=== PATIENT | female | born 1950 | race Caucasian/White ===

== ENCOUNTER 2018-01-11 22:10 | Inpatient (IN) | payer MEDICARE ==
[~2018-01-11] VITALS: Ht 165.1 cm; Wt 96.0 kg
[~2018-01-11 22:10] MED LIST: ALBU90OI INH; ALBU90OI6 INH; AMOCLA875 PO; ASPI325 PO; ASPI81CH PO; ASPI81EC PO; ATEN25 PO; ATOR10 PO; BACL10 PO; BUDE6HFA; Baclofen10 MG PO; CEPACOL SORE T1 EACH MM; CEPH500 PO; CHOL10002 PO; CLON.5; CLON.5 PO; CLON1 PO; CLOP75 PO; Combigan Eye Dro5 ML OP; DIAZ5 PO; FISH1000 PO; GABA100 PO; GLIM2 PO; GLIM4 PO; GUAI600T33 PO; Glimepiride4 MG PO; HYDACE5 PO; IBUP200 PO; IPRAIS NEB; LATANOPROST2.5 ML OP; LEVFLO500 PO; LISI5 PO; METF500 PO; METF500C PO; Neurontin 100100 MG PO; Norco 5-325 Ta1 EACH PO; ONDA4ODT MM; OXYACE5T PO; PRED1SU BOTHEYES; PRED20 PO; PROM25 PO; Roxicodone5 MG PO; SERT100; SERT100 PO; SITA100T2 PO; TIMO.5OPSO LEFTEYE; TORSE20 PO; VITAMIN D-3 PO; Ventolin Soln3 ML INH
[2018-01-11 23:06] LABS: BASOPHILS ABSOLUTE AUTO 0.05 K/mm3 (0.00-0.23); BASOPHILS PERCENT AUTO 0 % (0-2); EOSINOPHILS ABSOLUTE AUTO 0.01 K/mm3 (0.00-0.68); EOSINOPHILS PERCENT AUTO 0 % (0-6); Hematocrit 39.4 % (33.0-51.0); Hemoglobin 13.1 g/dL (11.5-16.0); IMMATURE GRAN ABSOLUTE AUTO 0.11 K/mm3 (0.00-0.10); IMMATURE GRAN PERCENT AUTO 1 % (0-1); LYMPHOCYTES ABSOLUTE AUTO 1.69 K/mm3 (0.84-5.20); LYMPHOCYTES PERCENT AUTO 8 % (21-46); MONOCYTES ABSOLUTE AUTO 1.34 K/mm3 (0.16-1.47); MONOCYTES PERCENT AUTO 6 % (4-13); Mean Corpuscular HGB 28.4 pg (26.0-34.0); Mean Corpuscular HGB Conc 33.2 g/dL (31.5-36.5); Mean Corpuscular Volume 86 fL (80-100); NEUTROPHILS ABSOLUTE AUTO 18.66 K/mm3 (1.96-9.15); NEUTROPHILS PERCENT AUTO 86 % (41-73); RDW Standard Deviation 43.3 fL (35.1-46.3); Red Blood Cell Count 4.61 M/mm3 (3.80-5.20); White Blood Cell Count 21.86 K/mm3 (4.00-11.30)
[2018-01-11 23:10] LABS: Platelet Count 182 K/mm3 (150-400)
[2018-01-11 23:26] LABS: Alanine Aminotransfer (ALT/SGP 15 U/L (12-78); Albumin, Blood 3.7 g/dL (3.4-5.0); Albumin/Globulin Ratio 0.9 (0.8-1.8); Alk Phos 75 U/L (50-136); Anion Gap 11 mmol/L (6-16); Aspartate Aminotrans (AST/SGOT 10 U/L (12-37); Bilirubin, Total 0.7 mg/dL (0.1-1.0); Blood Urea Nitrogen 15 mg/dL (8-24); Bun/Creatinine Ratio 14.9 (12.0-20.0); CO2, Blood 24 mmol/L (21-32); Calcium, Blood 8.1 mg/dL (8.5-10.1); Chloride, Blood 102 mmol/L (98-108); Creatinine, Blood 1.01 mg/dL (0.40-1.00); Globulin, Blood 4.3 g/dL (2.2-4.0); Glomerular Filtration Rate 58 (60-); Glucose, Blood 265 mg/dL (70-99); Potassium, Blood 3.7 mmol/L (3.5-5.5); Sodium, Blood 137 mmol/L (136-145); Troponin I <0.015 ng/mL (0.000-0.040)
[2018-01-11 23:52] LABS: Bicarbonate Venous 25.9 mmol/L (24.0-30.0); PO2 Venous 117 mmHg (38-42); pH Blood Venous 7.41 (7.34-7.37)
[2018-01-12 00:05] LABS: International Normalized Ratio 1.23; Prothrombin Time Results 12.5 Sec (9.7-11.5)
[2018-01-12 03:11] LABS: Hemoglobin 11.7 g/dL (11.5-16.0); Mean Corpuscular HGB 28.3 pg (26.0-34.0); Mean Corpuscular HGB Conc 32.5 g/dL (31.5-36.5); Mean Corpuscular Volume 87 fL (80-100); Mean Platelet Volume 11.1 fL (9.1-12.4); Platelet Count 149 K/mm3 (150-400); RDW Coefficient Variation 14.1 % (11.7-14.2); RDW Standard Deviation 45.1 fL (35.1-46.3); Red Blood Cell Count 4.13 M/mm3 (3.80-5.20)
[2018-01-12 03:29] LABS: Albumin, Blood 3.3 g/dL (3.4-5.0); Albumin/Globulin Ratio 0.8 (0.8-1.8); Bilirubin, Total 0.5 mg/dL (0.1-1.0); Bun/Creatinine Ratio 15.4 (12.0-20.0); Calcium, Blood 7.5 mg/dL (8.5-10.1); Creatinine, Blood 1.3 mg/dL (0.40-1.00); Globulin, Blood 4.2 g/dL (2.2-4.0); Total Protein, Blood 7.5 g/dL (6.4-8.2)
[2018-01-12] MEDS ORDERED: METF500C PO (10:13)
[2018-01-12] MEDS ORDERED: METO50ER PO (10:13)
[2018-01-12] MEDS ORDERED: SERT100 PO (16:33)
[2018-01-12] MEDS ORDERED: CLON1 PO (16:34)
[2018-01-13 03:47] LABS: BASOPHILS ABSOLUTE AUTO 0.02 K/mm3 (0.00-0.23); BASOPHILS PERCENT AUTO 0 % (0-2); EOSINOPHILS PERCENT AUTO 0 % (0-6); Hematocrit 34.8 % (33.0-51.0); Hemoglobin 11.2 g/dL (11.5-16.0); IMMATURE GRAN ABSOLUTE AUTO 0.31 K/mm3 (0.00-0.10); IMMATURE GRAN PERCENT AUTO 2 % (0-1); LYMPHOCYTES ABSOLUTE AUTO 0.93 K/mm3 (0.84-5.20); LYMPHOCYTES PERCENT AUTO 5 % (21-46); MONOCYTES ABSOLUTE AUTO 0.57 K/mm3 (0.16-1.47); MONOCYTES PERCENT AUTO 3 % (4-13); Mean Corpuscular HGB 28.4 pg (26.0-34.0); Mean Corpuscular HGB Conc 32.2 g/dL (31.5-36.5); Mean Corpuscular Volume 88 fL (80-100); Mean Platelet Volume 11.1 fL (9.1-12.4); NEUTROPHILS ABSOLUTE AUTO 16.89 K/mm3 (1.96-9.15); NEUTROPHILS PERCENT AUTO 90 % (41-73); Platelet Count 148 K/mm3 (150-400); RDW Standard Deviation 45.9 fL (35.1-46.3); Red Blood Cell Count 3.95 M/mm3 (3.80-5.20); White Blood Cell Count 18.72 K/mm3 (4.00-11.30)
[2018-01-13 04:09] LABS: Bun/Creatinine Ratio 29.4 (12.0-20.0); Calcium, Blood 7.7 mg/dL (8.5-10.1); Creatinine, Blood 1.43 mg/dL (0.40-1.00); Potassium, Blood 3.7 mmol/L (3.5-5.5)
[2018-01-13 08:05] LABS: Bicarbonate Venous 22.1 mmol/L (24.0-30.0); PCO2 Venous 56.2 mmHg (38-42); PO2 Venous 55.2 mmHg (38-42); pH Blood Venous 7.26 (7.34-7.37)
[2018-01-13 16:48] LABS: PCO2 Arterial 50 mmHg (35-45); PO2 Arterial 68.8 mmHg (80-100)
[2018-01-14 04:24] LABS: BASOPHILS ABSOLUTE AUTO 0.01 K/mm3 (0.00-0.23); BASOPHILS PERCENT AUTO 0 % (0-2); EOSINOPHILS PERCENT AUTO 0 % (0-6); Hematocrit 33.8 % (33.0-51.0); Hemoglobin 10.5 g/dL (11.5-16.0); IMMATURE GRAN ABSOLUTE AUTO 0.21 K/mm3 (0.00-0.10); IMMATURE GRAN PERCENT AUTO 2 % (0-1); LYMPHOCYTES ABSOLUTE AUTO 0.75 K/mm3 (0.84-5.20); LYMPHOCYTES PERCENT AUTO 6 % (21-46); MONOCYTES ABSOLUTE AUTO 0.39 K/mm3 (0.16-1.47); MONOCYTES PERCENT AUTO 3 % (4-13); Mean Corpuscular HGB 27.3 pg (26.0-34.0); Mean Corpuscular HGB Conc 31.1 g/dL (31.5-36.5); Mean Corpuscular Volume 88 fL (80-100); Mean Platelet Volume 11.9 fL (9.1-12.4); NEUTROPHILS ABSOLUTE AUTO 11.25 K/mm3 (1.96-9.15); NEUTROPHILS PERCENT AUTO 89 % (41-73); Platelet Count 161 K/mm3 (150-400); RDW Coefficient Variation 14.1 % (11.7-14.2); RDW Standard Deviation 45.1 fL (35.1-46.3); Red Blood Cell Count 3.85 M/mm3 (3.80-5.20); White Blood Cell Count 12.61 K/mm3 (4.00-11.30)
[2018-01-14 04:50] LABS: Albumin, Blood 2.7 g/dL (3.4-5.0); Anion Gap 8 mmol/L (6-16); Blood Urea Nitrogen 57 mg/dL (8-24); Bun/Creatinine Ratio 47.1 (12.0-20.0); CO2, Blood 27 mmol/L (21-32); Chloride, Blood 104 mmol/L (98-108); Creatinine, Blood 1.21 mg/dL (0.40-1.00); Glomerular Filtration Rate 47 (60-); Glucose, Blood 283 mg/dL (70-99); Phosphorus, Blood 3.3 mg/dL (2.5-4.9); Potassium, Blood 3.8 mmol/L (3.5-5.5); Sodium, Blood 139 mmol/L (136-145)
[2018-01-14 09:03] LABS: PCO2 Arterial 48.5 mmHg (35-45); PO2 Arterial 63.3 mmHg (80-100)
[2018-01-15 03:50] LABS: BASOPHILS ABSOLUTE AUTO 0.01 K/mm3 (0.00-0.23); BASOPHILS PERCENT AUTO 0 % (0-2); EOSINOPHILS PERCENT AUTO 0 % (0-6); Hematocrit 34.8 % (33.0-51.0); Hemoglobin 11.1 g/dL (11.5-16.0); IMMATURE GRAN ABSOLUTE AUTO 0.23 K/mm3 (0.00-0.10); IMMATURE GRAN PERCENT AUTO 2 % (0-1); LYMPHOCYTES ABSOLUTE AUTO 0.96 K/mm3 (0.84-5.20); LYMPHOCYTES PERCENT AUTO 9 % (21-46); MONOCYTES ABSOLUTE AUTO 0.36 K/mm3 (0.16-1.47); MONOCYTES PERCENT AUTO 4 % (4-13); Mean Corpuscular HGB 28.2 pg (26.0-34.0); Mean Corpuscular HGB Conc 31.9 g/dL (31.5-36.5); Mean Corpuscular Volume 88 fL (80-100); Mean Platelet Volume 11.3 fL (9.1-12.4); NEUTROPHILS ABSOLUTE AUTO 8.86 K/mm3 (1.96-9.15); NEUTROPHILS PERCENT AUTO 85 % (41-73); Platelet Count 175 K/mm3 (150-400); RDW Coefficient Variation 13.9 % (11.7-14.2); RDW Standard Deviation 45.1 fL (35.1-46.3); Red Blood Cell Count 3.94 M/mm3 (3.80-5.20); White Blood Cell Count 10.42 K/mm3 (4.00-11.30)
[2018-01-15 04:07] LABS: Albumin, Blood 2.7 g/dL (3.4-5.0); Anion Gap 8 mmol/L (6-16); Blood Urea Nitrogen 47 mg/dL (8-24); Bun/Creatinine Ratio 40.9 (12.0-20.0); CO2, Blood 29 mmol/L (21-32); Calcium, Blood 8.1 mg/dL (8.5-10.1); Chloride, Blood 106 mmol/L (98-108); Creatinine, Blood 1.15 mg/dL (0.40-1.00); Glomerular Filtration Rate 50 (60-); Glucose, Blood 188 mg/dL (70-99); Phosphorus, Blood 4.1 mg/dL (2.5-4.9); Potassium, Blood 3.8 mmol/L (3.5-5.5); Sodium, Blood 143 mmol/L (136-145)
[2018-01-16 05:04] LABS: BASOPHILS ABSOLUTE AUTO 0.02 K/mm3 (0.00-0.23); BASOPHILS PERCENT AUTO 0 % (0-2); EOSINOPHILS ABSOLUTE AUTO 0.05 K/mm3 (0.00-0.68); EOSINOPHILS PERCENT AUTO 1 % (0-6); Hematocrit 34.8 % (33.0-51.0); Hemoglobin 11.1 g/dL (11.5-16.0); IMMATURE GRAN ABSOLUTE AUTO 0.17 K/mm3 (0.00-0.10); IMMATURE GRAN PERCENT AUTO 2 % (0-1); LYMPHOCYTES ABSOLUTE AUTO 3.32 K/mm3 (0.84-5.20); LYMPHOCYTES PERCENT AUTO 30 % (21-46); MONOCYTES ABSOLUTE AUTO 0.86 K/mm3 (0.16-1.47); MONOCYTES PERCENT AUTO 8 % (4-13); Mean Corpuscular HGB 28.2 pg (26.0-34.0); Mean Corpuscular HGB Conc 31.9 g/dL (31.5-36.5); Mean Corpuscular Volume 88 fL (80-100); Mean Platelet Volume 10.7 fL (9.1-12.4); NEUTROPHILS ABSOLUTE AUTO 6.59 K/mm3 (1.96-9.15); NEUTROPHILS PERCENT AUTO 60 % (41-73); Platelet Count 166 K/mm3 (150-400); RDW Standard Deviation 45.1 fL (35.1-46.3); Red Blood Cell Count 3.94 M/mm3 (3.80-5.20); White Blood Cell Count 11.01 K/mm3 (4.00-11.30)
[2018-01-16 05:25] LABS: Albumin, Blood 2.7 g/dL (3.4-5.0); Anion Gap 6 mmol/L (6-16); Blood Urea Nitrogen 33 mg/dL (8-24); Bun/Creatinine Ratio 33.6 (12.0-20.0); CO2, Blood 29 mmol/L (21-32); Calcium, Blood 8.1 mg/dL (8.5-10.1); Chloride, Blood 109 mmol/L (98-108); Creatinine, Blood 0.98 mg/dL (0.40-1.00); Glomerular Filtration Rate >60 (60-); Glucose, Blood 133 mg/dL (70-99); Phosphorus, Blood 4.3 mg/dL (2.5-4.9); Potassium, Blood 3.5 mmol/L (3.5-5.5); Sodium, Blood 144 mmol/L (136-145)
[2018-01-16] MEDS ORDERED: ALBU2.5V5 NEB (11:46)
[2018-01-16] MEDS ORDERED: GUAI600T33 PO (11:48)
[2018-01-16] MEDS ORDERED: Atrovent Inha12.9 GM INH (11:51)
[2018-01-16] MEDS ORDERED: Nicoderm Cq1 EAC1 TD (11:52)
[2018-01-16] MEDS ORDERED: DELTASONE20 MG PO (11:58)
[2018-01-16] MEDS ORDERED: FLUT1DIS5 INH (12:00)
[2018-01-16] MEDS ORDERED: LEVO750 PO (12:01)
[2018-01-16] MEDS ORDERED: METF500C PO (12:45)
[2018-01-16] MEDS ORDERED: ABAT250V (12:45)
== END 2018-01-16 17:21 | disposition home or self-care (01) | DRG 871 ==
LOC: ER 22:10 → PCU 01-12 00:13 → MEDS 01-15 19:25 → ENPENDDIS 01-16 11:27 → MEDS 01-16 17:21
PROVIDERS: Emergency Medicine; Family Medicine; Internal Medicine
PROC: 5A09357 Assistance with Respiratory Ventilation, Less than 24 Consecutive Hours, Continuous Positive Airway Pressure (ICD-10-PCS; principal; 2018-01-13)
PROC: 3E0234Z Introduction of Serum, Toxoid and Vaccine into Muscle, Percutaneous Approach (ICD-10-PCS; 2018-01-16)
DX: A41.9 Sepsis, unspecified organism (principal); J18.9 Pneumonia, unspecified organism; J96.01 Acute respiratory failure with hypoxia; J96.02 Acute respiratory failure with hypercapnia; J44.0 Chronic obstructive pulmonary disease with (acute) lower respiratory infection; J44.1 Chronic obstructive pulmonary disease with (acute) exacerbation; E87.4 Mixed disorder of acid-base balance; N17.9 Acute kidney failure, unspecified; R65.20 Severe sepsis without septic shock; I12.9 Hypertensive chronic kidney disease with stage 1 through stage 4 chronic kidney disease, or unspecified chronic kidney disease; E11.22 Type 2 diabetes mellitus with diabetic chronic kidney disease; N18.3 Chronic kidney disease, stage 3 (moderate); E66.01 Morbid (severe) obesity due to excess calories; Z68.33 Body mass index [BMI] 33.0-33.9, adult; Z23 Encounter for immunization; I25.10 Atherosclerotic heart disease of native coronary artery without angina pectoris; E78.5 Hyperlipidemia, unspecified; F17.210 Nicotine dependence, cigarettes, uncomplicated; E11.65 Type 2 diabetes mellitus with hyperglycemia; D69.6 Thrombocytopenia, unspecified; F40.240 Claustrophobia
CPT/HCPCS: 36415; 36600; 71046; 80048; 80053; 80069; 82803; 82947; 83605; 83690; 83880; 84484; 85025; 85027; 85610; 85730; 87040; 87070; 87205; 90670; 93005; 93010; 94640; 94660; 94760; 94762; 96365; 96368; 96375; 99285; J0692; J0696; J1650; J1815; J1956; J2405; J2920; J2930; J3010; J3370; J7030

== ENCOUNTER 2018-04-16 15:45 | Emergency (ER) | payer MEDICARE ==
[~2018-04-16] VITALS: Ht 165.1 cm; Wt 87.1 kg
[~2018-04-16 15:45] MED LIST changes: +ABAT250V; +ALBU2.5V5 NEB; +Atrovent Inha12.9 GM INH; +DELTASONE20 MG PO; +FLUT1DIS5 INH; +LEVO750 PO; +METO50ER PO; +Nicoderm Cq1 EAC1 TD
[2018-04-16 16:05] LABS: BASOPHILS ABSOLUTE AUTO 0.07 K/mm3 (0.00-0.23); BASOPHILS PERCENT AUTO 1 % (0-2); EOSINOPHILS PERCENT AUTO 3 % (0-6); Hematocrit 45.1 % (33.0-51.0); Hemoglobin 13.9 g/dL (11.5-16.0); IMMATURE GRAN ABSOLUTE AUTO 0.04 K/mm3 (0.00-0.10); IMMATURE GRAN PERCENT AUTO 0 % (0-1); LYMPHOCYTES ABSOLUTE AUTO 4.98 K/mm3 (0.84-5.20); LYMPHOCYTES PERCENT AUTO 40 % (21-46); MONOCYTES ABSOLUTE AUTO 0.84 K/mm3 (0.16-1.47); MONOCYTES PERCENT AUTO 7 % (4-13); Mean Corpuscular HGB 27.9 pg (26.0-34.0); Mean Corpuscular HGB Conc 30.8 g/dL (31.5-36.5); Mean Corpuscular Volume 91 fL (80-100); Mean Platelet Volume 11.3 fL (9.1-12.4); NEUTROPHILS ABSOLUTE AUTO 6.22 K/mm3 (1.96-9.15); NEUTROPHILS PERCENT AUTO 50 % (41-73); Platelet Count 273 K/mm3 (150-400); RDW Coefficient Variation 15.8 % (11.7-14.2); RDW Standard Deviation 52.9 fL (35.1-46.3); Red Blood Cell Count 4.98 M/mm3 (3.80-5.20); White Blood Cell Count 12.55 K/mm3 (4.00-11.30)
[2018-04-16 16:30] LABS: Alanine Aminotransfer (ALT/SGP 23 U/L (12-78); Albumin, Blood 3.6 g/dL (3.4-5.0); Albumin/Globulin Ratio 1.1 (0.8-1.8); Alk Phos 62 U/L (50-136); Anion Gap 7 mmol/L (6-16); Aspartate Aminotrans (AST/SGOT 13 U/L (12-37); Bilirubin, Total 0.5 mg/dL (0.1-1.0); Blood Urea Nitrogen 24 mg/dL (8-24); CO2, Blood 25 mmol/L (21-32); Calcium, Blood 8.2 mg/dL (8.5-10.1); Chloride, Blood 108 mmol/L (98-108); Creatinine, Blood 1.33 mg/dL (0.40-1.00); Globulin, Blood 3.4 g/dL (2.2-4.0); Glomerular Filtration Rate 42 (60-); Glucose, Blood 235 mg/dL (70-99); Magnesium, Blood 1.7 mg/dL (1.6-2.4); Sodium, Blood 140 mmol/L (136-145); Troponin I <0.015 ng/mL (0.000-0.040)
[2018-04-16 17:54] LABS: Source, Urine Clean Catch
[2018-04-16 18:06] LABS: Appearance, Urine Hazy (Clear); Bilirubin, Urine Neg (Neg); Blood, Urine 1+ (Neg); Color, Urine Yellow (P-Yellow); Glucose Qualitative, Urine Neg (Neg); Ketones, Urine Neg (Neg); Leukocyte Esterase, Urine 3+ (Neg); Nitrite, Urine Neg (Neg); Protein, Urine 3+ (Neg); Urobilinogen, Urine NORM (Normal)
[2018-04-16 18:33] LABS: White Blood Cells, Urine 50-100 /hpf (0-5)
[2018-04-16 18:34] LABS: Squamous Epithelial Cells Mod /hpf (Few)
[2018-04-16 18:35] LABS: Bacteria Few /hpf
== END 2018-04-16 18:18 | disposition home or self-care (01) ==
LOC: ER 15:45
PROVIDERS: Emergency Medicine
DX: R55 Syncope and collapse (principal); I10 Essential (primary) hypertension; E11.9 Type 2 diabetes mellitus without complications; Z88.2 Allergy status to sulfonamides; Z79.899 Other long term (current) drug therapy; Z79.84 Long term (current) use of oral hypoglycemic drugs
CPT/HCPCS: 70450; 71046; 72125; 80053; 81001; 83735; 84484; 85025; 87077; 87086; 87186; 93005; 93010; 96360; 99285-25; J7030

== ENCOUNTER → 2019-04-22 | Outpatient (CLI) | payer MEDICARE ==
[2019-04-27 14:06] LABS: M-SPIKE, % Comment: % (Not Observed)
== END | disposition home or self-care (01) ==
LOC: LAB 12:50 → LAB SHORT 12:50
PROVIDERS: Internal Medicine
DX: Z00.01 Encounter for general adult medical examination with abnormal findings (principal)
CPT/HCPCS: 81050; 84156; 84166

== ENCOUNTER 2019-05-28 09:55 | Day surgery (SDC) | payer MEDICARE ==
[2019-05-28] MEDS ORDERED: Vitamin D2000 UNIT PO (15:10)
[2019-05-28] MEDS ORDERED: CLOP75 PO (15:10)
[2019-05-28] MEDS ORDERED: PROAIR RESPICL90 MCG INH (15:11)
[2019-05-28] MEDS ORDERED: Ipratropium Bro15 ML INH (15:13)
[2019-05-28] MEDS ORDERED: Aspir 8181 MG PO (15:14)
--- NOTE | 2019-05-28 16:40 | NUR ---
PT C/O BEING SHAKY AND WEAK WHEN AMBULATING DOWN THE HALLWAY TO EXIT THE [facility]ESSIA. SHE REPORTS SHE THINKS HER BLOOD SUGAR WAS LOW. SHE DOESN'T HAVE A METER WITH HER TO CHECK HER BLOOD SUGAR. ORANGE JUICE 1 CONTAINER GIVEN. PT REPORTS SHE FEELS BETTER AND MUCH LESS SHAKY AFTER DRINKING THE ORANGE JUICE. DC'D, AMB WITH STEADY GAIT TO PRIVATE CAR WITH FRIEND.
== END 2019-05-28 16:03 | disposition home or self-care (01) ==
LOC: ATC 09:55
DX: C86.0 Extranodal NK/T-cell lymphoma, nasal type (principal); N19 Unspecified kidney failure; F17.210 Nicotine dependence, cigarettes, uncomplicated; Z88.2 Allergy status to sulfonamides
CPT/HCPCS: J7030

== ENCOUNTER → 2019-08-05 | Outpatient (CLI) | payer MEDICARE ==
[~2019-08-05] MED LIST changes: +Aspir 8181 MG PO; +Ipratropium Bro15 ML INH; +PROAIR RESPICL90 MCG INH; +Vitamin D2000 UNIT PO
[2019-08-09 13:25] LABS: Creatinine Urine 92.4 mg/dL (27.00-270.00); Protein, Urine Quantitative 29.5 mg/dL (0.0-11.9)
[2019-08-09 13:27] LABS: Microalbumin, Urine Quant. 23.8 mg/L (0.000-20.000)
== END | disposition home or self-care (01) ==
LOC: LAB SHORT 19:00 → LAB 19:00
PROVIDERS: Internal Medicine Nephrology
DX: N18.4 Chronic kidney disease, stage 4 (severe) (principal); D63.1 Anemia in chronic kidney disease; N25.81 Secondary hyperparathyroidism of renal origin; E55.9 Vitamin D deficiency, unspecified; E78.00 Pure hypercholesterolemia, unspecified; R76.9 Abnormal immunological finding in serum, unspecified; R94.5 Abnormal results of liver function studies; R94.6 Abnormal results of thyroid function studies
CPT/HCPCS: 81050; 82043; 82570; 84156

== ENCOUNTER → 2019-08-09 | Outpatient (CLI) | payer MEDICARE | END | disposition home or self-care (01) | LOC: LAB 08:37 → LAB SHORT 08:37 | DX: E11.22 Type 2 diabetes mellitus with diabetic chronic kidney disease (principal); N18.4 Chronic kidney disease, stage 4 (severe); D63.1 Anemia in chronic kidney disease; N25.81 Secondary hyperparathyroidism of renal origin; E55.9 Vitamin D deficiency, unspecified; E78.00 Pure hypercholesterolemia, unspecified; R76.9 Abnormal immunological finding in serum, unspecified; R94.5 Abnormal results of liver function studies; R94.6 Abnormal results of thyroid function studies | CPT/HCPCS: 86335 ==

== ENCOUNTER 2019-11-25 15:39 | Inpatient (IN) | payer MEDICARE ==
[~2019-11-25] VITALS: Ht 165.1 cm; Wt 98.8 kg
[2019-11-25 16:22] LABS: BASOPHILS ABSOLUTE AUTO 0.05 K/mm3 (0.00-0.23); BASOPHILS PERCENT AUTO 1 % (0-2); EOSINOPHILS ABSOLUTE AUTO 0.28 K/mm3 (0.00-0.68); EOSINOPHILS PERCENT AUTO 4 % (0-6); Hematocrit 41.7 % (33.0-51.0); Hemoglobin 12.9 g/dL (11.5-16.0); IMMATURE GRAN ABSOLUTE AUTO 0.01 K/mm3 (0.00-0.10); IMMATURE GRAN PERCENT AUTO 0 % (0-1); LYMPHOCYTES ABSOLUTE AUTO 2.25 K/mm3 (0.84-5.20); LYMPHOCYTES PERCENT AUTO 32 % (21-46); MONOCYTES ABSOLUTE AUTO 0.52 K/mm3 (0.16-1.47); MONOCYTES PERCENT AUTO 7 % (4-13); Mean Corpuscular HGB 28.4 pg (26.0-34.0); Mean Corpuscular HGB Conc 30.9 g/dL (31.5-36.5); Mean Corpuscular Volume 92 fL (80-100); NEUTROPHILS ABSOLUTE AUTO 3.91 K/mm3 (1.96-9.15); NEUTROPHILS PERCENT AUTO 56 % (41-73); Platelet Count 175 K/mm3 (150-400); RDW Coefficient Variation 15.1 % (11.7-14.2); RDW Standard Deviation 51.3 fL (35.1-46.3); Red Blood Cell Count 4.54 M/mm3 (3.80-5.20); White Blood Cell Count 7.02 K/mm3 (4.00-11.30)
[2019-11-25 16:25] LABS: PCO2 Arterial 64.9 mmHg (35-45); PO2 Arterial 69.5 mmHg (80-100); pH Blood Arterial 7.26 (7.35-7.45)
[2019-11-25] MEDS ORDERED: CLON1 (16:40)
[2019-11-25] MEDS ORDERED: CLON1 PO ×2 (16:41)
[2019-11-25] MEDS ORDERED: Calcitriol0.25 MCG PO (16:44)
[2019-11-25 16:52] LABS: Alanine Aminotransfer (ALT/SGP 20 U/L (12-78); Albumin, Blood 3.7 g/dL (3.4-5.0); Albumin/Globulin Ratio 0.9 (0.8-1.8); Alk Phos 58 U/L (50-136); Anion Gap 4 mmol/L (6-16); Aspartate Aminotrans (AST/SGOT 12 U/L (12-37); Bilirubin, Total 0.3 mg/dL (0.1-1.0); Blood Urea Nitrogen 29 mg/dL (8-24); CO2, Blood 28 mmol/L (21-32); Calcium, Blood 7.7 mg/dL (8.5-10.1); Chloride, Blood 106 mmol/L (98-108); Creatinine, Blood 1.32 mg/dL (0.40-1.00); Glomerular Filtration Rate 42 (60-); Glucose, Blood 315 mg/dL (70-99); Potassium, Blood 4.5 mmol/L (3.5-5.5); Sodium, Blood 138 mmol/L (136-145); Total Protein, Blood 7.7 g/dL (6.4-8.2); Troponin I <0.015 ng/mL (0.000-0.040)
[2019-11-25] MEDS ORDERED: CLONAZEPAM1 MG PO (17:01)
[2019-11-26 03:59] LABS: Hematocrit 39.1 % (33.0-51.0); Hemoglobin 11.5 g/dL (11.5-16.0); Mean Corpuscular HGB 27.7 pg (26.0-34.0); Mean Corpuscular HGB Conc 29.4 g/dL (31.5-36.5); Mean Corpuscular Volume 94 fL (80-100); Mean Platelet Volume 11.5 fL (9.1-12.4); Platelet Count 146 K/mm3 (150-400); RDW Coefficient Variation 15.2 % (11.7-14.2); RDW Standard Deviation 52.8 fL (35.1-46.3); Red Blood Cell Count 4.15 M/mm3 (3.80-5.20); White Blood Cell Count 8.53 K/mm3 (4.00-11.30)
[2019-11-26 04:21] LABS: Bun/Creatinine Ratio 23.8 (12.0-20.0); Creatinine, Blood 1.6 mg/dL (0.40-1.00); Potassium, Blood 5.4 mmol/L (3.5-5.5)
[2019-11-26 05:14] LABS: PCO2 Arterial 60.8 mmHg (35-45); PO2 Arterial 74.8 mmHg (80-100)
--- NOTE | 2019-11-26 05:59 | NUR ---
SHIFT SUMMARY PT SLEEPING IN ROOM COMFORTABLY AT THIS TIME. PT WAS RESTLESS T/O NIGHT. REMAINED SLIGHTLY ALTERED AND FORGETFUL AT TIMES. RESP EVEN AND SLIGHTLY LABORED W/ EXERTION ON 3L NC W/ SATS >92%. PT TEARFUL AND ANXIOUS OFTEN T/O NIGHT. PT WORE BIPAP FOR 2 HOURS DURING THE NIGHT BEFORE REQUESTING BREAK. ABG THIS AM RESULTED IN CRITICAL pH OF 7.20 PROVIDER CALLED AND INFORMED. PT PLACED BACK ON BIPAP AND ASKED TO LEAVE ON LONG POSSIBLE. PT REPORTED SOME ANIXETY BUT REPORTED WOULD LEAVE MASK ON. HARSH BARKING COUGH NOTED. PT DENIED OTHER NEEDS. CALL LIGHT IN REACH. BED ALARM ON FOR SAFETY.
--- NOTE | 2019-11-26 08:55 | NUR ---
ASSUMED CARE AT 0700, REPORT FROM DAPHNE SY. LAYING ON LEFT SIDE WEARING BIPAP. ALERT AND ORIENTED. REFUSES SWAB FOR RESPIRATORY PANEL. STATES HAS COVID SWAB YESTERDAY AND NOT GOING THROUGH THAT AGAIN. REPOSITIONS SELF IN BED. WILL CONTINUE TO MONITOR.
[2019-11-26 10:19] LABS: PCO2 Arterial 60.6 mmHg (35-45); PO2 Arterial 66.1 mmHg (80-100); pH Blood Arterial 7.22 (7.35-7.45)
--- NOTE | 2019-11-26 11:05 | NUR ---
RESTARTED ON BIPAP BY RT.
--- NOTE | 2019-11-26 12:30 | NUR ---
UPDATED DR. SOLIMAN ON HIGH CHEMBG'S. DR. SOLIMAN TO PT ROOM TO EVALUATE.
[2019-11-26 16:16] LABS: Adenovirus Not Detected (NOT DETECT); Bordetella pertussis Not Detected (NOT DETECT); Chlamydophila pneumoniae Not Detected (NOT DETECT); Coronavirus 229E Not Detected (NOT DETECT); Coronavirus HKU1 Not Detected (NOT DETECT); Coronavirus NL63 Not Detected (NOT DETECT); Coronavirus OC43 Not Detected (NOT DETECT); Human Metapneumovirus Not Detected (NOT DETECT); Human Rhinovirus/Enterovirus Not Detected (NOT DETECT); Influenza A/2009-H1 Not Detected (NOT DETECT); Influenza A/H1 Not Detected (NOT DETECT); Influenza A/H3 Not Detected (NOT DETECT); Influenza B Not Detected (NOT DETECT); Mycoplasma pneumoniae Not Detected (NOT DETECT); Parainfluenza Virus 1 Not Detected (NOT DETECT); Parainfluenza Virus 2 Not Detected (NOT DETECT); Parainfluenza Virus 3 Not Detected (NOT DETECT); Parainfluenza Virus 4 Not Detected (NOT DETECT); Respiratory Syncytial Virus Not Detected (NOT DETECT)
--- NOTE | 2019-11-26 16:26 | NUR ---
INSULIN DOSES VERIFIED BY DAPHNE DIAS.
--- NOTE | 2019-11-26 18:06 | NUR ---
SHIFT SUMMARY: AWAKE AND ALERT THROUGHOUT SHIFT. INTERMITANTLY CONFUSED ON NEED TO BE IN HOSPTIAL. EVALUATED BY PULMONOLOGY TODAY AND VERBAL ORDER GIVEN FOR BREAKS FROM M SERIES BIPAP FOR EATING REMAINING ON 2L NC FOR UP TO A HOUR. BLOOD SUGAR HIGH THROUGHOUT SHIFT AND DISCUSSED WITH DR. SOLIMAN. LONG ACTING INSULIN ORDERED TO BE STARTED TONIGHT. VSS WITH CONTINUOUS SA02 MONITORING. WILL CONTINUE TO MONITOR UNTIL CHANGE OF SHIFT.
--- NOTE | 2019-11-26 20:10 | NUR ---
PATIENT HAD YELLOW SMALL ROUND PILL IN BED; PATIENT STATED "OH I THINK THAT IS MY CLONAZEPAM FROM EARLIER"; "IT MAY HAVE FELL OUT OF MY PURSE". PATIENT INSTURCTED NOT TO TAKE PILL; WASTED IN SHARPS CONTAINER; WITNESSED BY MARE BRYAN RN. PATIENT STATES SHE DOESNT HAVE ANY PILLS IN HER PURSE; IT WAS PROBABLY A LOOSE ONE.
--- NOTE | 2019-11-26 21:26 | NUR ---
ASSUMED CARE OF PATIENT AT [facility] 1905 FROM VIKKI Marie RN. PATIENT ALERT AND ORIENTED; ONE ASSIST OUT OF BED TO BEDSIDE COMMODE. PATIENT DENIES PAIN, NUMBNESS, TINGLING AND NAUSEA. PATIENT REPORTS SHE WAS DIZZY UPON TRANSFER FROM BED TO BEDSIDE COMMODE. NSR ON TELE; OXYGEN SATURATION ABOVE 90% ON 2-3LPM VIA NC; BIPAP IN ROOM; PATIENT DOESNT WANT TO WEAR IT. PATIENT HAS HARSE NONPRODUCTION COUGH. PIV S/L. IN ISOLATION TO R/O COVID. PATIENT CURRENTLY RESTING IN BED; CALL LIGHT IN REACH; BED IN LOWEST POSISTION; BED ALARM ON; WILL CONTINUE TO MONITOR AND ASSESS UNTIL END OF SHIFT.
[2019-11-27 04:54] LABS: PCO2 Arterial 56.6 mmHg (35-45); PO2 Arterial 79.4 mmHg (80-100)
--- NOTE | 2019-11-27 06:42 | NUR ---
PATIENT SLEPT ABOUT SIX HOURS LAST NIGHT. VSS. NO ACUTE CHANGES TO REPORT.
--- NOTE | 2019-11-27 08:39 | NUR ---
INSULIN VERIFIED BY DAPHNE PINON
[2019-11-27 08:49] LABS: Base Excess Venous -1.5 mmol/L; Bicarbonate Venous 22.9 mmol/L (24.0-30.0); PCO2 Venous 43.5 mmHg (38-42); PO2 Venous 51.8 mmHg (38-42); pH Blood Venous 7.35 (7.34-7.37)
[2019-11-27 09:12] LABS: Albumin, Blood 3.4 g/dL (3.4-5.0); Anion Gap 8 mmol/L (6-16); Blood Urea Nitrogen 55 mg/dL (8-24); Bun/Creatinine Ratio 35.7 (12.0-20.0); CO2, Blood 25 mmol/L (21-32); Calcium, Blood 7.2 mg/dL (8.5-10.1); Chloride, Blood 98 mmol/L (98-108); Creatinine, Blood 1.54 mg/dL (0.40-1.00); Glomerular Filtration Rate 36 (60-); Glucose, Blood 395 mg/dL (70-99); Potassium, Blood 5.6 mmol/L (3.5-5.5); Sodium, Blood 131 mmol/L (136-145)
--- NOTE | 2019-11-27 17:36 | NUR ---
SHIFT SUMMARY: AWAKE AND ORIENTED THROUGHOUT SHIFT. CONTINUED BLOOD SUGAR COVERAGE WITH INSULIN AT MEALS. EVALUATED IN AM BY DR. DUGAN. PER DR. DUGAN OK TO STAY OFF BIPAP DURING DAY AND USE AT NIGHT. 2L 02 VIA NC DURING DAY. OK TO AMBULATE IN ROOM PER DR. DUGAN. ENCOURAGE FREQUENT MOVEMENT AND GETTING OUT OF BED TO ASSIST IN LUNG FUNCTION. ISOLATION PRECAUTIONS REMOVED DUE TO NEGATIVE COVID TEST. VSS, TARGET O2 SAT 88-93% PER DR. DUGAN. WILL CONTINUE TO MONITOR UNTIL SHIFT CHANGE.
--- NOTE | 2019-11-28 03:46 | NUR ---
SHIFT SUMMARY PT IS A/O BUT FORGETFUL AT TIMES. PT IS IND. TO BEDSIDE COMMODE AND HAS BEEN UP SEVERAL TIMES DURING THE SHIFT. PT HAS BEEN USING O2 NC AT 2-3L WHILE AWAKE AND BIPAP WHILE ASLEEP. BIOX HAS BEEN ON DURING THE SHIFT; O2 SAT. HAS BEEN IN 90'S. CBG AT START OF SHIFT WAS ELEVATED; PT WAS GIVEN LANTUS AND HUMALOG PER ORDERS. PT IS TOLERATING PO INTAKE AND VOIDING. NO ACUTE CHANGES OVERNIGHT. PT IS SLEEPING AT THIS TIME WITH BIPAP IN PLACE. CALL LIGHT IN REACH. WILL CONT. TO MONITOR.
--- NOTE | 2019-11-28 07:33 | NUR ---
ASSUMED CARE AT 0700, REPORT FROM DAPHNE WALTON. SITTING IN HIGH FOWLERS IN BED. A/A/OX4 WATCHING TV. 2.5L LA 02, UPDATED ON PLAN OF CARE FOR THE DAY, DENIES NEEDS AT THIS TIME, WILL CONTINUE TO MONITOR.
[2019-11-28 09:04] LABS: Albumin, Blood 3.7 g/dL (3.4-5.0); Anion Gap 9 mmol/L (6-16); Blood Urea Nitrogen 64 mg/dL (8-24); Bun/Creatinine Ratio 44.4 (12.0-20.0); CO2, Blood 26 mmol/L (21-32); Calcium, Blood 7.5 mg/dL (8.5-10.1); Chloride, Blood 97 mmol/L (98-108); Creatinine, Blood 1.44 mg/dL (0.40-1.00); Glomerular Filtration Rate 38 (60-); Glucose, Blood 428 mg/dL (70-99); Phosphorus, Blood 4.4 mg/dL (2.5-4.9); Potassium, Blood 5.1 mmol/L (3.5-5.5); Sodium, Blood 132 mmol/L (136-145)
--- NOTE | 2019-11-28 17:45 | NUR ---
SHIFT SUMMARY: ALERT AND ORIENTED THROUGHOUT SHIFT. SITS AT BEDSIDE FOR MEALS, AMBULATED TO BEDSIDE COMMODE WITH STANDBY ASSIST. STATUS CHANGED TO MEDICAL. REMAINS ON 2L O2 NC WITH TARGET SATS OF 88-93% PER DR. DUGAN. EVALUATED TODAY BY DR. DUGAN, POSSIBLE O2 EVAL TOMORROW AND POSSIBLE DISCHARGE. VSS, BLOOD SUGAR REMAINED ELEVATED WITH INSULIN COVERAGE ADMINISTERED. WILL CONTINUE TO MONITOR UNTIL CHANGE OF SHIFT.
--- NOTE | 2019-11-28 23:18 | NUR ---
ASSUMED CARE AT 1900. PT A/O. USES SBA FOR TRANSFER TO BEDSIDE COMMODE. PT HAS BEEN ON 2L O2 NC WITH O2 SAT IN 90'S. BIOX AT BEDSIDE. PT SITTING IN BED WATCHING TV AT THIS TIME. DENIES FURTHER NEEDS. VSS. WCTM.
--- NOTE | 2019-11-29 03:42 | NUR ---
SHIFT SUMMARY PT HAS MOSTLY BEEN A/O X4 DURING THE NIGHT. SHE SEEMS FORGETFUL AT TIMES AND SLIGHTLY CONFUSED WHEN SHE FIRST AWAKENS, BUT REORIENTS QUICKLY. PT HAS BEEN USING SBA TO BEDSIDE COMMODE. TOLERATING PO INTAKE AND VOIDING. PT REFUSED COLACE REPORTING THAT SHE ONLY HAS A BM EVERY FEW DAYS. EDUCATION PROVIDED. PT CONT TO REFUSE COLACE. PT REPORTS SHE IS FEELING MUCH BETTER THAN SHE DID YESTERDAY. SHE HAS BEEN USING 2L O2 NC MAINTAINING O2 SAT BETWEEN 88-93%. BIOX IN PLACE THROUGH THE SHIFT. LUNG SOUNDS HAVE BEEN SOMEWHAT WHEEZY; PT RECEIVING BREATHING TREATMENTS PER ORDERS. TELE WAS DC'D THIS SHIFT PER ORDER. NO ACUTE CHANGES, VSS. WCTM.
[2019-11-29 05:22] LABS: Albumin, Blood 3.4 g/dL (3.4-5.0); Anion Gap 8 mmol/L (6-16); Blood Urea Nitrogen 65 mg/dL (8-24); Bun/Creatinine Ratio 42.5 (12.0-20.0); CO2, Blood 28 mmol/L (21-32); Calcium, Blood 7.3 mg/dL (8.5-10.1); Chloride, Blood 98 mmol/L (98-108); Creatinine, Blood 1.53 mg/dL (0.40-1.00); Glomerular Filtration Rate 36 (60-); Glucose, Blood 393 mg/dL (70-99); Phosphorus, Blood 5.3 mg/dL (2.5-4.9); Potassium, Blood 5.4 mmol/L (3.5-5.5); Sodium, Blood 134 mmol/L (136-145)
--- NOTE | 2019-11-29 07:28 | NUR ---
pt laying in bed watching tv, a/ox3, forgetful at times, states she is doing better and is ready to go home today, lungs have ins/exp wheezing t/o, resp even and unlabored, she reports occ prod cough but doesn't know what color as she is vision impaired, currently on 2 liters 02 via n/c, will have a home 02 eval today, hrr, distant, radial and pedal pulses present, piv to left wrist, s.l. no edema noted, btx4, abd round soft nontender, voids without diff, skin c/w/d, maew, aviva, call light in reach.
[2019-11-29] MEDS ORDERED: SEEBRI NEOHA15.6 MC1 INH (10:09)
[2019-11-29] MEDS ORDERED: GUAI600T33 PO (10:10)
[2019-11-29] MEDS ORDERED: Humalog100 UNIT/1 SC (10:11)
[2019-11-29] MEDS ORDERED: Prednisone10 MG PO (10:14)
[2019-11-29] MEDS ORDERED: ALBU2.5V5 INH (10:15)
--- NOTE | 2019-11-29 12:57 | NUR ---
ATTEMPTING TO GO OVER DISCHARGE INSTRUCTIONS WITH PT, SHE IS REFUSING TO GO HOME ON INSULIN, DOESN'T FEEL LIKE SHE CAN HANDLE THIS. SPOKE WITH Dr. Hamilton, she said she needs to temperary, because of steroids, she became very tearful, klonapin given. spouce will be asked to come to room to give instructions to him.
--- NOTE | 2019-11-29 14:15 | NUR ---
charge nurse went over instructions with spouce, he verbalized understanding, iv was removed intact. left via wheelchair with spouce and manager valuation in attendence. pt much more calm. new scripts were called into her pharmacy, she has all her belongings.
== END 2019-11-29 14:09 | disposition home or self-care (01) | DRG 189 ==
LOC: ER 15:39 → PCU 17:42
PROVIDERS: Emergency Medicine; Internal Medicine Critical Care Medicine; ADMIT Internal Medicine
PROC: 5A09457 Assistance with Respiratory Ventilation, 24-96 Consecutive Hours, Continuous Positive Airway Pressure (ICD-10-PCS; principal; 2019-11-25)
DX: J96.21 Acute and chronic respiratory failure with hypoxia (principal); J44.1 Chronic obstructive pulmonary disease with (acute) exacerbation; J44.0 Chronic obstructive pulmonary disease with (acute) lower respiratory infection; E87.1 Hypo-osmolality and hyponatremia; I13.0 Hypertensive heart and chronic kidney disease with heart failure and stage 1 through stage 4 chronic kidney disease, or unspecified chronic kidney disease; I50.32 Chronic diastolic (congestive) heart failure; J96.22 Acute and chronic respiratory failure with hypercapnia; J20.9 Acute bronchitis, unspecified; E11.65 Type 2 diabetes mellitus with hyperglycemia; E11.22 Type 2 diabetes mellitus with diabetic chronic kidney disease; N18.3 Chronic kidney disease, stage 3 (moderate); E11.42 Type 2 diabetes mellitus with diabetic polyneuropathy; E87.5 Hyperkalemia; F41.9 Anxiety disorder, unspecified; F32.9 Major depressive disorder, single episode, unspecified; E78.5 Hyperlipidemia, unspecified; D63.1 Anemia in chronic kidney disease; M19.90 Unspecified osteoarthritis, unspecified site; M85.80 Other specified disorders of bone density and structure, unspecified site; D47.2 Monoclonal gammopathy; Z20.828 Contact with and (suspected) exposure to other viral communicable diseases; F17.210 Nicotine dependence, cigarettes, uncomplicated; E66.9 Obesity, unspecified; I25.10 Atherosclerotic heart disease of native coronary artery without angina pectoris; Z95.5 Presence of coronary angioplasty implant and graft; Z68.35 Body mass index [BMI] 35.0-35.9, adult
CPT/HCPCS: 0099U; 36415; 36600; 71045; 80048; 80053; 80069; 82803; 82947; 83735; 84145; 84484; 85025; 85027; 87070; 87205; 93005; 93010; 94640; 94644; 94660; 94761; 94762; 96374; 99285-25; A9270-GY; J1650; J2920; J2930; J7512; U0003

== ENCOUNTER 2020-03-16 18:54 | Emergency (ER) | payer MEDICARE, OTHER ==
[~2020-03-16] VITALS: Ht 165.1 cm; Wt 93.9 kg
[~2020-03-16 18:54] MED LIST changes: +ALBU2.5V5 INH; +CLON1; +CLONAZEPAM1 MG PO; +Calcitriol0.25 MCG PO; +Humalog100 UNIT/1 SC; +Prednisone10 MG PO; +SEEBRI NEOHA15.6 MC1 INH
[2020-03-16 19:38] LABS: BASOPHILS ABSOLUTE AUTO 0.05 K/mm3 (0.00-0.23); BASOPHILS PERCENT AUTO 0 % (0-2); EOSINOPHILS ABSOLUTE AUTO 0.27 K/mm3 (0.00-0.68); EOSINOPHILS PERCENT AUTO 2 % (0-6); Hematocrit 34.1 % (33.0-51.0); IMMATURE GRAN ABSOLUTE AUTO 0.04 K/mm3 (0.00-0.10); IMMATURE GRAN PERCENT AUTO 0 % (0-1); LYMPHOCYTES ABSOLUTE AUTO 1.88 K/mm3 (0.84-5.20); LYMPHOCYTES PERCENT AUTO 16 % (21-46); MONOCYTES ABSOLUTE AUTO 1.05 K/mm3 (0.16-1.47); MONOCYTES PERCENT AUTO 9 % (4-13); Mean Corpuscular HGB 26.4 pg (26.0-34.0); Mean Corpuscular HGB Conc 32.3 g/dL (31.5-36.5); Mean Corpuscular Volume 82 fL (80-100); Mean Platelet Volume 10.5 fL (9.1-12.4); NEUTROPHILS ABSOLUTE AUTO 8.74 K/mm3 (1.96-9.15); NEUTROPHILS PERCENT AUTO 73 % (41-73); Platelet Count 221 K/mm3 (150-400); RDW Coefficient Variation 14.9 % (11.7-14.2); RDW Standard Deviation 44.9 fL (35.1-46.3); Red Blood Cell Count 4.17 M/mm3 (3.80-5.20); White Blood Cell Count 12.03 K/mm3 (4.00-11.30)
[2020-03-16 19:58] LABS: Alanine Aminotransfer (ALT/SGP 22 U/L (12-78); Albumin, Blood 3.8 g/dL (3.4-5.0); Albumin/Globulin Ratio 0.7 (0.8-1.8); Alk Phos 58 U/L (50-136); Anion Gap 7 mmol/L (6-16); Aspartate Aminotrans (AST/SGOT 12 U/L (12-37); Bilirubin, Total 0.5 mg/dL (0.1-1.0); Blood Urea Nitrogen 19 mg/dL (8-24); Bun/Creatinine Ratio 16.8 (12.0-20.0); CO2, Blood 30 mmol/L (21-32); Calcium, Blood 8.6 mg/dL (8.5-10.1); Chloride, Blood 95 mmol/L (98-108); Creatinine, Blood 1.13 mg/dL (0.40-1.00); Globulin, Blood 5.3 g/dL (2.2-4.0); Glomerular Filtration Rate 51 (60-); Glucose, Blood 231 mg/dL (70-99); Potassium, Blood 3.6 mmol/L (3.5-5.5); Sodium, Blood 132 mmol/L (136-145); Total Protein, Blood 9.1 g/dL (6.4-8.2); Troponin I <0.015 ng/mL (0.000-0.040)
[2020-03-16] MEDS ORDERED: Keflex500 MG PO (23:10)
== END 2020-03-16 23:37 | disposition home or self-care (01) ==
LOC: ER 18:54
PROVIDERS: Physician Assistant
DX: L73.9 Follicular disorder, unspecified (principal); B96.89 Other specified bacterial agents as the cause of diseases classified elsewhere; J44.9 Chronic obstructive pulmonary disease, unspecified; E11.22 Type 2 diabetes mellitus with diabetic chronic kidney disease; N18.3 Chronic kidney disease, stage 3 (moderate); E11.40 Type 2 diabetes mellitus with diabetic neuropathy, unspecified; I50.32 Chronic diastolic (congestive) heart failure; I25.10 Atherosclerotic heart disease of native coronary artery without angina pectoris; F17.210 Nicotine dependence, cigarettes, uncomplicated; Z99.81 Dependence on supplemental oxygen; Z88.2 Allergy status to sulfonamides; Z79.4 Long term (current) use of insulin; Z79.899 Other long term (current) drug therapy
CPT/HCPCS: 36415; 71045; 80053; 82947; 83605; 83880; 84484; 85025; 93005; 93010; 99284-25; A9270-GY

== ENCOUNTER 2020-09-02 18:36 | Emergency (ER) | payer MEDICARE ==
[~2020-09-02] VITALS: Ht 165.1 cm; Wt 93.4 kg
[~2020-09-02 18:36] MED LIST changes: +Keflex500 MG PO
[2020-09-02] MEDS ORDERED: ONDA4ODT MM (21:18)
[2020-09-02] MEDS ORDERED: TRADJENTA5 MG PO (21:18)
[2020-09-02] MEDS ORDERED: Benadryl Itch28.3 G1 TOP (21:27)
== END 2020-09-02 21:45 | disposition home or self-care (01) ==
LOC: ER 18:36
DX: L25.9 Unspecified contact dermatitis, unspecified cause (principal); I10 Essential (primary) hypertension; E11.9 Type 2 diabetes mellitus without complications; Z95.5 Presence of coronary angioplasty implant and graft; Z79.4 Long term (current) use of insulin; Z87.891 Personal history of nicotine dependence; Z79.899 Other long term (current) drug therapy
CPT/HCPCS: 99282; A9270

== ENCOUNTER → 2021-01-11 | Outpatient (CLI) | payer MEDICARE ==
[~2021-01-11] MED LIST changes: +Benadryl Itch28.3 G1 TOP; +TRADJENTA5 MG PO
[2021-01-11 12:41] LABS: BASOPHILS ABSOLUTE AUTO 0.04 K/mm3 (0.00-0.23); BASOPHILS PERCENT AUTO 1 % (0-2); EOSINOPHILS ABSOLUTE AUTO 0.28 K/mm3 (0.00-0.68); EOSINOPHILS PERCENT AUTO 4 % (0-6); Hematocrit 35.4 % (33.0-51.0); Hemoglobin 11.3 g/dL (11.5-16.0); IMMATURE GRAN ABSOLUTE AUTO 0.01 K/mm3 (0.00-0.10); IMMATURE GRAN PERCENT AUTO 0 % (0-1); LYMPHOCYTES ABSOLUTE AUTO 2.63 K/mm3 (0.84-5.20); LYMPHOCYTES PERCENT AUTO 38 % (21-46); MONOCYTES PERCENT AUTO 7 % (4-13); Mean Corpuscular HGB 26.4 pg (26.0-34.0); Mean Corpuscular HGB Conc 31.9 g/dL (31.5-36.5); Mean Corpuscular Volume 83 fL (80-100); Mean Platelet Volume 11.5 fL (9.1-12.4); NEUTROPHILS ABSOLUTE AUTO 3.56 K/mm3 (1.96-9.15); NEUTROPHILS PERCENT AUTO 51 % (41-73); Platelet Count 154 K/mm3 (150-400); RDW Coefficient Variation 13.9 % (11.7-14.2); RDW Standard Deviation 41.4 fL (35.1-46.3); Red Blood Cell Count 4.28 M/mm3 (3.80-5.20); White Blood Cell Count 7.02 K/mm3 (4.00-11.30)
[2021-01-11 12:58] LABS: Bun/Creatinine Ratio 17.4 (12.0-20.0); Calcium, Blood 8.2 mg/dL (8.5-10.1); Creatinine, Blood 1.72 mg/dL (0.40-1.00); Potassium, Blood 3.4 mmol/L (3.5-5.5)
[2021-01-11 13:07] LABS: Source, Urine Clean Catch
[2021-01-11 13:22] LABS: White Blood Cells, Urine 50-100 /hpf (0-5)
[2021-01-11 13:23] LABS: Bacteria Many /hpf; Granular Casts Rare /lpf (0); Renal Epithelial Rare /hpf (0-Rare); Squamous Epithelial Cells Rare /hpf (Few); Transitional Epithelial Cells Few /hpf (0-Rare)
== END | disposition home or self-care (01) ==
LOC: LAB SHORT 12:33 → LAB 12:33
PROVIDERS: General Practice
DX: N18.4 Chronic kidney disease, stage 4 (severe) (principal); R30.9 Painful micturition, unspecified
CPT/HCPCS: 80048; 81015; 85025; 87077; 87086; 87186

== ENCOUNTER 2021-11-16 00:50 | Emergency (ER) | payer MEDICARE ==
[~2021-11-16] VITALS: Ht 165.1 cm; Wt 90.7 kg
[2021-11-16 01:27] LABS: BASOPHILS ABSOLUTE AUTO 0.06 K/mm3 (0.00-0.23); BASOPHILS PERCENT AUTO 1 % (0-2); EOSINOPHILS ABSOLUTE AUTO 0.49 K/mm3 (0.00-0.68); EOSINOPHILS PERCENT AUTO 5 % (0-6); Hematocrit 36.8 % (33.0-51.0); Hemoglobin 11.5 g/dL (11.5-16.0); IMMATURE GRAN ABSOLUTE AUTO 0.02 K/mm3 (0.00-0.10); IMMATURE GRAN PERCENT AUTO 0 % (0-1); LYMPHOCYTES ABSOLUTE AUTO 2.68 K/mm3 (0.84-5.20); LYMPHOCYTES PERCENT AUTO 29 % (21-46); MONOCYTES ABSOLUTE AUTO 0.55 K/mm3 (0.16-1.47); MONOCYTES PERCENT AUTO 6 % (4-13); Mean Corpuscular HGB 26.7 pg (26.0-34.0); Mean Corpuscular HGB Conc 31.3 g/dL (31.5-36.5); Mean Corpuscular Volume 86 fL (80-100); NEUTROPHILS ABSOLUTE AUTO 5.35 K/mm3 (1.96-9.15); NEUTROPHILS PERCENT AUTO 58 % (41-73); Platelet Count 165 K/mm3 (150-400); RDW Coefficient Variation 14.8 % (11.7-14.2); RDW Standard Deviation 46.5 fL (35.1-46.3); White Blood Cell Count 9.15 K/mm3 (4.00-11.30)
[2021-11-16 01:27] LABS: Glucose, Blood 624 mg/dL (70-99)
[2021-11-16 01:49] LABS: Alanine Aminotransfer (ALT/SGP 25 U/L (12-78); Albumin, Blood 3.6 g/dL (3.4-5.0); Albumin/Globulin Ratio 0.9 (0.8-1.8); Alk Phos 66 U/L (50-136); Anion Gap 11 mmol/L (6-16); Aspartate Aminotrans (AST/SGOT 10 U/L (12-37); Bilirubin, Total 0.3 mg/dL (0.1-1.0); Blood Urea Nitrogen 54 mg/dL (8-24); Bun/Creatinine Ratio 27.8 (12.0-20.0); CO2, Blood 24 mmol/L (21-32); Calcium, Blood 7.2 mg/dL (8.5-10.1); Chloride, Blood 98 mmol/L (98-108); Creatinine, Blood 1.94 mg/dL (0.40-1.00); Globulin, Blood 3.9 g/dL (2.2-4.0); Glomerular Filtration Rate 25 (60-); Potassium, Blood 3.8 mmol/L (3.5-5.5); Sodium, Blood 133 mmol/L (136-145); Total Protein, Blood 7.5 g/dL (6.4-8.2)
[2021-11-16 02:38] LABS: Source, Urine Clean Catch
[2021-11-16 02:40] LABS: Bilirubin, Urine Neg (Neg); Blood, Urine Neg (Neg); Glucose Qualitative, Urine 4+ (Neg); Ketones, Urine Neg (Neg); Leukocyte Esterase, Urine Neg (Neg); Nitrite, Urine Neg (Neg); Protein, Urine Neg (Neg); Specific Gravity, Urine 1.015 (1.003-1.022); Urobilinogen, Urine NORM (Normal)
[2021-11-16 02:41] LABS: Appearance, Urine Clear (Clear); Color, Urine Pale Yellow (P-Yellow)
== END 2021-11-16 03:39 | disposition home or self-care (01) ==
LOC: ER 00:50
PROVIDERS: Student in an Organized Health Care Education/Training Program
DX: E11.65 Type 2 diabetes mellitus with hyperglycemia (principal); I25.10 Atherosclerotic heart disease of native coronary artery without angina pectoris; E11.22 Type 2 diabetes mellitus with diabetic chronic kidney disease; N18.30 Chronic kidney disease, stage 3 unspecified; D63.1 Anemia in chronic kidney disease; J44.9 Chronic obstructive pulmonary disease, unspecified; I50.32 Chronic diastolic (congestive) heart failure; F17.210 Nicotine dependence, cigarettes, uncomplicated; M19.90 Unspecified osteoarthritis, unspecified site; Z79.4 Long term (current) use of insulin; Z79.899 Other long term (current) drug therapy; Z79.52 Long term (current) use of systemic steroids; Z88.2 Allergy status to sulfonamides
CPT/HCPCS: 71045; 80053; 81003; 82010; 82947; 85025; 93005; 93010; A9270; J1815; J7120

== ENCOUNTER 2023-02-23 04:46 | Emergency (ER) | payer MEDICARE ==
[~2023-02-23] VITALS: Ht 165.1 cm; Wt 93.0 kg
[~2023-02-23 04:46] MED LIST changes: +ACET325 PO; +Robaxin750 MG PO
[2023-02-23 05:55] LABS: Calcium, Ionized (POC) 1.11 mmol/L (1.10-1.46); Chloride (POC) 101 mmol/L (98-108); Creatinine (POC) 1.6 mg/dL (0.6-1.0); Glucose (ISTAT POC) 161 mg/dL (70-99); Hemoglobin (POC) 12.9 g/dL (12.0-16.0); Potassium (POC) 4.4 mmol/L (3.5-5.5); Sodium (POC) 139 mmol/L (135-148); Total CO2 (POC) 30 mmol/L (21-32)
[2023-02-23] MEDS ORDERED: METPRE4DP PO (06:09)
[2023-02-23 06:27] VITALS: BP 127/57
== END 2023-02-23 07:20 | disposition home or self-care (01) ==
LOC: ER 04:46
PROVIDERS: Emergency Medicine
DX: S50.311A Abrasion of right elbow, initial encounter (principal); M54.42 Lumbago with sciatica, left side; J44.1 Chronic obstructive pulmonary disease with (acute) exacerbation; I10 Essential (primary) hypertension; E11.40 Type 2 diabetes mellitus with diabetic neuropathy, unspecified; F17.210 Nicotine dependence, cigarettes, uncomplicated; Z88.2 Allergy status to sulfonamides; Z79.4 Long term (current) use of insulin; Z79.84 Long term (current) use of oral hypoglycemic drugs; Z79.52 Long term (current) use of systemic steroids; Z79.899 Other long term (current) drug therapy; W06.XXXA Fall from bed, initial encounter
CPT/HCPCS: 80047; 85014; 94640; 94664; 96374; 96375; 99283-25; A9270; J1100; J1170; J1885; J2405

== ENCOUNTER 2023-02-25 01:04 | Emergency (ER) | payer MEDICARE ==
[~2023-02-25] VITALS: Ht 165.1 cm; Wt 81.7 kg
[~2023-02-25 01:04] MED LIST changes: +METPRE4DP PO
[2023-02-25 01:12] VITALS: BP 146/64
== END 2023-02-25 02:57 | disposition home or self-care (01) ==
LOC: ER 01:04
DX: M19.012 Primary osteoarthritis, left shoulder (principal); Z88.2 Allergy status to sulfonamides; Z79.899 Other long term (current) drug therapy; Z79.4 Long term (current) use of insulin; Z79.52 Long term (current) use of systemic steroids; E11.22 Type 2 diabetes mellitus with diabetic chronic kidney disease; N18.30 Chronic kidney disease, stage 3 unspecified; J44.9 Chronic obstructive pulmonary disease, unspecified; E78.5 Hyperlipidemia, unspecified; D63.1 Anemia in chronic kidney disease; I50.32 Chronic diastolic (congestive) heart failure; E11.42 Type 2 diabetes mellitus with diabetic polyneuropathy; F17.210 Nicotine dependence, cigarettes, uncomplicated
CPT/HCPCS: 96372; 99283-25; J1885

== ENCOUNTER 2023-02-28 04:46 | Emergency (ER) | payer MEDICARE ==
[~2023-02-28] VITALS: Ht 160 cm; Wt 97.5 kg
[2023-02-28 05:18] LABS: BASOPHILS ABSOLUTE AUTO 0.04 K/mm3 (0.00-0.23); BASOPHILS PERCENT AUTO 0 % (0-2); EOSINOPHILS ABSOLUTE AUTO 0.15 K/mm3 (0.00-0.68); EOSINOPHILS PERCENT AUTO 1 % (0-6); Hematocrit 41.8 % (33.0-51.0); Hemoglobin 13.6 g/dL (11.5-16.0); IMMATURE GRAN ABSOLUTE AUTO 0.06 K/mm3 (0.00-0.10); IMMATURE GRAN PERCENT AUTO 1 % (0-1); LYMPHOCYTES ABSOLUTE AUTO 2.96 K/mm3 (0.84-5.20); LYMPHOCYTES PERCENT AUTO 24 % (21-46); MONOCYTES ABSOLUTE AUTO 0.88 K/mm3 (0.16-1.47); MONOCYTES PERCENT AUTO 7 % (4-13); Mean Corpuscular HGB 27.4 pg (26.0-34.0); Mean Corpuscular HGB Conc 32.5 g/dL (31.5-36.5); Mean Corpuscular Volume 84 fL (80-100); Mean Platelet Volume 9.9 fL (9.1-12.4); NEUTROPHILS ABSOLUTE AUTO 8.38 K/mm3 (1.96-9.15); NEUTROPHILS PERCENT AUTO 67 % (41-73); Platelet Count 202 K/mm3 (150-400); RDW Coefficient Variation 14.5 % (11.7-14.2); RDW Standard Deviation 44.3 fL (35.1-46.3); Red Blood Cell Count 4.97 M/mm3 (3.80-5.20); White Blood Cell Count 12.47 K/mm3 (4.00-11.30)
[2023-02-28 05:49] LABS: Albumin, Blood 3.9 g/dL (3.4-5.0); Bilirubin, Total 0.3 mg/dL (0.1-1.0); Bun/Creatinine Ratio 30.2 (12.0-20.0); Calcium, Blood 9.6 mg/dL (8.5-10.1); Creatinine, Blood 1.69 mg/dL (0.40-1.00); Potassium, Blood 4.9 mmol/L (3.5-5.5); Total Protein, Blood 7.9 g/dL (6.4-8.2)
[2023-02-28] MEDS ORDERED: ONDA4ODT MM (06:15)
[2023-02-28] MEDS ORDERED: LOPE2C PO (06:15)
[2023-02-28 06:49] VITALS: BP 165/85
== END 2023-02-28 07:44 | disposition home or self-care (01) ==
LOC: ER 04:46
PROVIDERS: Emergency Medicine
DX: R10.9 Unspecified abdominal pain (principal); R11.0 Nausea; R19.7 Diarrhea, unspecified; R16.0 Hepatomegaly, not elsewhere classified; R53.1 Weakness; E11.42 Type 2 diabetes mellitus with diabetic polyneuropathy; I25.10 Atherosclerotic heart disease of native coronary artery without angina pectoris; J44.9 Chronic obstructive pulmonary disease, unspecified; E78.5 Hyperlipidemia, unspecified; I50.32 Chronic diastolic (congestive) heart failure; E11.22 Type 2 diabetes mellitus with diabetic chronic kidney disease; N18.30 Chronic kidney disease, stage 3 unspecified; F17.210 Nicotine dependence, cigarettes, uncomplicated; Z88.2 Allergy status to sulfonamides; Z79.52 Long term (current) use of systemic steroids; Z79.84 Long term (current) use of oral hypoglycemic drugs; Z79.4 Long term (current) use of insulin; Z79.899 Other long term (current) drug therapy
CPT/HCPCS: 74177; 80053; 83690; 85025; 96360; 96361; 99285-25; A9270; J7030; Q9967

== ENCOUNTER 2024-05-05 23:35 | Inpatient (IN) | payer MEDICARE ==
[~2024-05-05] VITALS: Ht 162.6 cm; Wt 95.9 kg
[~2024-05-05 23:35] MED LIST changes: +LOPE2C PO
[2024-05-05 23:50] LABS: PCO2 Arterial 40.2 mmHg (35-45); PO2 Arterial 70.4 mmHg (80-100)
[2024-05-05] MEDS ORDERED: NS 1,000 ML IV SCH (23:50)
[2024-05-05 23:51] LABS: pH Blood Arterial 7.19 (7.35-7.45)
[2024-05-06] LABS: BASOPHILS ABSOLUTE AUTO 0.01 K/mm3 (0.00-0.23); BASOPHILS PERCENT AUTO 0 % (0-2); EOSINOPHILS ABSOLUTE AUTO 0.08 K/mm3 (0.00-0.68); EOSINOPHILS PERCENT AUTO 1 % (0-6); Hemoglobin 10.6 g/dL (11.5-16.0); IMMATURE GRAN ABSOLUTE AUTO 0.03 K/mm3 (0.00-0.10); IMMATURE GRAN PERCENT AUTO 0 % (0-1); LYMPHOCYTES ABSOLUTE AUTO 0.48 K/mm3 (0.84-5.20); LYMPHOCYTES PERCENT AUTO 6 % (21-46); MONOCYTES ABSOLUTE AUTO 0.51 K/mm3 (0.16-1.47); MONOCYTES PERCENT AUTO 7 % (4-13); Mean Corpuscular HGB 25.2 pg (26.0-34.0); Mean Corpuscular HGB Conc 31.2 g/dL (31.5-36.5); Mean Corpuscular Volume 81 fL (80-100); Mean Platelet Volume 11.4 fL (9.1-12.4); NEUTROPHILS ABSOLUTE AUTO 6.47 K/mm3 (1.96-9.15); NEUTROPHILS PERCENT AUTO 85 % (41-73); Platelet Count 259 K/mm3 (150-400); RDW Coefficient Variation 15.3 % (11.7-14.2); RDW Standard Deviation 44.8 fL (35.1-46.3); Red Blood Cell Count 4.21 M/mm3 (3.80-5.20); White Blood Cell Count 7.58 K/mm3 (4.00-11.30)
[2024-05-06 00:23] LABS: Source, Urine Straight Cath
[2024-05-06 00:23] LABS: Magnesium, Blood 1.7 mg/dL (1.6-2.4); Salicylate <1.7 mg/dL (2.8-20.0)
[2024-05-06 00:32] LABS: Alanine Aminotransfer (ALT/SGP 12 U/L (12-78); Albumin, Blood 2.9 g/dL (3.4-5.0); Albumin/Globulin Ratio 0.6 (0.8-1.8); Alk Phos 62 U/L (50-136); Anion Gap 13 mmol/L (3-11); Aspartate Aminotrans (AST/SGOT 19 U/L (12-37); Bilirubin, Total 0.4 mg/dL (0.1-1.0); Blood Urea Nitrogen 113 mg/dL (8-24); Bun/Creatinine Ratio 21.5 (12.0-20.0); CO2, Blood 20 mmol/L (21-32); Calcium, Blood 8.5 mg/dL (8.5-10.1); Chloride, Blood 107 mmol/L (98-108); Creatinine, Blood 5.25 mg/dL (0.40-1.00); Globulin, Blood 4.8 g/dL (2.2-4.0); Glomerular Filtration Rate 8 (60-); Glucose, Blood 191 mg/dL (70-99); Phosphorus, Blood 7.9 mg/dL (2.5-4.9); Potassium, Blood 4.8 mmol/L (3.5-5.5); Sodium, Blood 135 mmol/L (136-145); Total Protein, Blood 7.7 g/dL (6.4-8.2)
[2024-05-06 00:33] LABS: Acetaminophen, Random <2.0 ug/mL (10.0-30.0)
[2024-05-06 00:36] LABS: Appearance, Urine Cloudy (Clear); Blood, Urine 1+ (Neg); Color, Urine Yellow (P-Yellow); Glucose Qualitative, Urine Neg (Neg); Ketones, Urine Neg (Neg); Leukocyte Esterase, Urine 2+ (Neg); Nitrite, Urine Neg (Neg); Protein, Urine 3+ (Neg); Specific Gravity, Urine 1.025 (1.003-1.022); Urobilinogen, Urine NORM (Normal)
[2024-05-06 00:52] LABS: Bilirubin, Urine 2+ (Neg)
[2024-05-06 00:55] LABS: Amorphous Heavy (0-Heavy); Bacteria Mod /hpf; Mucus Light (0-Heavy); Squamous Epithelial Cells Few /hpf (Few); White Blood Cells, Urine 50-100 /hpf (0-5)
[2024-05-06 00:57] LABS: U Amphetamine Screen Not Detected; U Barbituate Screen Not Detected; U Benzodiazapine Screen DETECTED; U Buprenorphine Screen Not Detected; U Cannabinoids Screen Not Detected; U Cocaine Screen Not Detected; U Methadone Screen Not Detected; U Methamphetamine Screen Not Detected; U Opiates Screen Not Detected; U Oxycodone Screen Not Detected; U Phencyclidine Screen Not Detected
[2024-05-06 01:04] LABS: Influenza A, PCR NEGATIVE (NEGATIVE); Influenza B, PCR NEGATIVE (NEGATIVE); Resp Syncytial Virus, PCR NEGATIVE (NEGATIVE)
[2024-05-06] MEDS ORDERED: FLU VACC TS2024-25(6MOS UP)/PF 45 MCG/0.5 ML SYRINGE IM SCH (01:15)
[2024-05-06] MEDS ORDERED: NS 1,000 ML IV SCH ×2 (01:20→09:20)
[2024-05-06 01:37] LABS: SARS-Cov-2 (COVID-19) PCR, MMC POSITIVE (NEGATIVE)
[2024-05-06] MEDS ORDERED: CefTRIAXone Sodium 2,000 MG in NS 100 ML IV ONE (02:10)
[2024-05-06 02:13] LABS: BASOPHILS ABSOLUTE AUTO 0.01 K/mm3 (0.00-0.23); BASOPHILS PERCENT AUTO 0 % (0-2); EOSINOPHILS ABSOLUTE AUTO 0.05 K/mm3 (0.00-0.68); EOSINOPHILS PERCENT AUTO 1 % (0-6); Hematocrit 32.5 % (33.0-51.0); Hemoglobin 10.4 g/dL (11.5-16.0); IMMATURE GRAN ABSOLUTE AUTO 0.02 K/mm3 (0.00-0.10); IMMATURE GRAN PERCENT AUTO 0 % (0-1); LYMPHOCYTES ABSOLUTE AUTO 0.44 K/mm3 (0.84-5.20); LYMPHOCYTES PERCENT AUTO 6 % (21-46); MONOCYTES ABSOLUTE AUTO 0.51 K/mm3 (0.16-1.47); MONOCYTES PERCENT AUTO 7 % (4-13); Mean Corpuscular HGB 25.7 pg (26.0-34.0); Mean Corpuscular Volume 80 fL (80-100); Mean Platelet Volume 11.6 fL (9.1-12.4); NEUTROPHILS ABSOLUTE AUTO 6.12 K/mm3 (1.96-9.15); NEUTROPHILS PERCENT AUTO 86 % (41-73); Platelet Count 226 K/mm3 (150-400); RDW Coefficient Variation 15.2 % (11.7-14.2); RDW Standard Deviation 44.4 fL (35.1-46.3); Red Blood Cell Count 4.04 M/mm3 (3.80-5.20); White Blood Cell Count 7.15 K/mm3 (4.00-11.30)
[2024-05-06 02:27] LABS: Albumin, Blood 2.8 g/dL (3.4-5.0); Albumin/Globulin Ratio 0.7 (0.8-1.8); Bilirubin, Total 0.3 mg/dL (0.1-1.0); Bun/Creatinine Ratio 22.9 (12.0-20.0); Calcium, Blood 8.4 mg/dL (8.5-10.1); Creatinine, Blood 4.93 mg/dL (0.40-1.00); Globulin, Blood 4.3 g/dL (2.2-4.0); Potassium, Blood 4.3 mmol/L (3.5-5.5); Total Protein, Blood 7.1 g/dL (6.4-8.2)
[2024-05-06 05:54] LABS: BASOPHILS ABSOLUTE AUTO 0.01 K/mm3 (0.00-0.23); BASOPHILS PERCENT AUTO 0 % (0-2); EOSINOPHILS ABSOLUTE AUTO 0.09 K/mm3 (0.00-0.68); EOSINOPHILS PERCENT AUTO 2 % (0-6); Hematocrit 29.8 % (33.0-51.0); Hemoglobin 9.5 g/dL (11.5-16.0); IMMATURE GRAN ABSOLUTE AUTO 0.02 K/mm3 (0.00-0.10); IMMATURE GRAN PERCENT AUTO 0 % (0-1); LYMPHOCYTES PERCENT AUTO 12 % (21-46); MONOCYTES ABSOLUTE AUTO 0.48 K/mm3 (0.16-1.47); MONOCYTES PERCENT AUTO 9 % (4-13); Mean Corpuscular HGB 25.6 pg (26.0-34.0); Mean Corpuscular HGB Conc 31.9 g/dL (31.5-36.5); Mean Corpuscular Volume 80 fL (80-100); Mean Platelet Volume 11.2 fL (9.1-12.4); NEUTROPHILS ABSOLUTE AUTO 4.34 K/mm3 (1.96-9.15); NEUTROPHILS PERCENT AUTO 77 % (41-73); Platelet Count 215 K/mm3 (150-400); RDW Standard Deviation 44.3 fL (35.1-46.3); Red Blood Cell Count 3.71 M/mm3 (3.80-5.20); White Blood Cell Count 5.64 K/mm3 (4.00-11.30)
[2024-05-06 06:18] LABS: Albumin, Blood 2.6 g/dL (3.4-5.0); Albumin/Globulin Ratio 0.6 (0.8-1.8); Bilirubin, Total 0.2 mg/dL (0.1-1.0); Bun/Creatinine Ratio 23.2 (12.0-20.0); Calcium, Blood 8.2 mg/dL (8.5-10.1); Creatinine, Blood 4.79 mg/dL (0.40-1.00); Globulin, Blood 4.1 g/dL (2.2-4.0); Total Protein, Blood 6.7 g/dL (6.4-8.2)
[2024-05-06] MEDS ORDERED: Sodium Bicarb 8.4% Inj 100 MEQ in Sodium Chloride 0.45% 1,000 ML IV SCH ×2 (06:45→11:20)
[2024-05-06 08:12] VITALS: BP 113/41
[2024-05-06] MEDS ORDERED: CefTRIAXone Sodium 1,000 MG in NS 100 ML IV SCH (09:00)
[2024-05-06] MEDS ORDERED: Azithromycin 500 MG in NS 250 ML IV SCH (09:00)
[2024-05-06] MEDS ORDERED: Heparin Sodium,Porcine 5,000 UNIT/0.5 ML SDV SC SCH (09:00)
[2024-05-06] MEDS ORDERED: Dexamethasone Sodium Phosphate 4 MG/ML 1ML Vial IV SCH (09:00)
[2024-05-06 09:43] VITALS: BP 143/97
[2024-05-06 11:34] VITALS: BP 159/81
[2024-05-06] MEDS ORDERED: SERT100 PO (11:42)
[2024-05-06] MEDS ORDERED: BASAGLAR K100 UNIT/1 SC (11:42)
[2024-05-06] MEDS ORDERED: Vistaril25 MG PO (11:44)
[2024-05-06] MEDS ORDERED: CLON1 PO ×2 (11:45→11:46)
[2024-05-06] MEDS ORDERED: CALC.25 PO (11:46)
[2024-05-06] MEDS ORDERED: FURO40 PO (11:47)
[2024-05-06] MEDS ORDERED: GLIP5 PO (11:48)
[2024-05-06] MEDS ORDERED: Ipratropium/Albuterol SulF 2.5-0.5MG/3 ML Amp INH SCH (12:10)
[2024-05-06] MEDS ORDERED: Albuterol 2.5 MG/3 ML VIAL INH PRN (12:10)
[2024-05-06 12:14] LABS: Base Excess Venous -11.8 mmol/L; Bicarbonate Venous 14.8 mmol/L (24.0-30.0); PCO2 Venous 48.6 mmHg (38-42)
[2024-05-06 12:15] LABS: pH Blood Venous 7.15 (7.34-7.37)
[2024-05-06 12:32] LABS: Bun/Creatinine Ratio 27.3 (12.0-20.0); Calcium, Blood 8.1 mg/dL (8.5-10.1); Creatinine, Blood 3.99 mg/dL (0.40-1.00)
[2024-05-06 15:50] VITALS: BP 113/48
--- NOTE | 2024-05-06 18:01 | NUR ---
SHIFT SUMMARY; ED ADMIT AT APPROX 0800. SLID FROM ER GURNEY TO BED WITH MULTIPLE STAFF MEMBERS, ARRIVES ON 4L O2, BASELINE HOME 02 IS 3L. BRUSING NOTED IN VARIOUS STAGES OF HEALING ON BACK FROM PREVIOUS FALL. PHOTO TAKEN. VSS, EVALUATED BY DR. WRIGHT AND IV FLUIDS ORDERED AND STARTED. A/A/OX2 WITH INTERMITANT CONFUSION. MED REC UPDATED AND DR. BLAKE NOTIFIED OF UPDATE. PURWICK PLACED FOR INCONTINANCE WITH ATTENDS. INCREASED CONFUSION IN EVENING. CAREGIVER STATES HAS BEEN THIS WAY AT HOME FOR THE LAST SEVERAL MONTHS. CAREGIVER STATES GETS UP IN THE MIDDLE OF THE NIGHT AND FORGETS TO USE WALKER AND FALLS. SETS OFF BED ALARM MULTIPLE TIMES AND IS DIFFICULT TO REDIRECT, CHARGE NURSE UPDATED, WILL PLAN FOR SITTER. WILL CONTINUE TO MONITOR AND TREAT UNTIL CHANGE OF SHIFT.
[2024-05-06 19:42] VITALS: BP 130/56
--- NOTE | 2024-05-06 19:45 | NUR ---
ASSESSMENT/ASSUMED CARE PT SITTING UP IN BED SAYING,"I NEED TO PEE" REMINDED PT THAT SHE HAS A PUREWICK. PT STATES,"I FORGOT I HAD THAT". PT A&O TO SELF AND PLACE. REORIENTED TO DATE AND WHY SHE IS AT THE HOSPITIAL. SPEACH CLEAR AND ANSWERS QUESTIONS APPRPO. FORGETFUL. DENEIS PAIN. LUNGS CLEAR BUT DECREASED ON 3 LITERSE O2 VIA NC. RESP EVEN AND NONLABORED. OCC COUGH, NONPRODUCTIVE. HEART RATE REGULAR. BP STABLE. IV TO RIGHT AC SALINE LOCKED, SITE CLEAR. POWER GLIDE TO RIGHT UPPER ARM BICARB GTT AT 75 ML/HR. SITE CLEAR. BT+ HYPOACTIVE. ABD SOFT AND NONTENDER. PUREWICK AND ATTENDS IN PLACE. MELODY. MOVING SELF IN BED.
[2024-05-06] MEDS ORDERED: Miconazole Nitrate 2% 85 GM PWD TOP SCH (21:00)
[2024-05-06] MEDS ORDERED: ClonazePAM 1 MG Tab PO SCH (21:00)
[2024-05-06 23:24] VITALS: BP 193/165
[2024-05-06] MEDS ORDERED: Lisinopril 5 MG Tab PO SCH (23:35)
--- NOTE | 2024-05-06 23:35 | NUR ---
HYPERTENSION BP 193/165 MAP 175 HEART RATE 92. CALLED TO DR WRIGHT. SEE NEW ORDERS
[2024-05-07 00:48] VITALS: BP 104/70
[2024-05-07] MEDS ORDERED: Acetaminophen 325 MG TABLET PO PRN (02:40)
[2024-05-07 03:05] VITALS: BP 129/57
--- NOTE | 2024-05-07 03:11 | NUR ---
PAIN PT C/O PAIN "ALL OVER". OBTAINED ORDER FOR TYLENOL. MEDICATED WITH TYLENOL. TURNED AND REPOSITIONED. WT DONE. VSS
[2024-05-07 03:51] LABS: Hematocrit 25.3 % (33.0-51.0); Hemoglobin 8.3 g/dL (11.5-16.0)
[2024-05-07 04:20] LABS: Magnesium, Blood 1.5 mg/dL (1.6-2.4)
[2024-05-07 04:40] LABS: Albumin, Blood 2.4 g/dL (3.4-5.0); Anion Gap 10 mmol/L (3-11); Blood Urea Nitrogen 96 mg/dL (8-24); Bun/Creatinine Ratio 33.9 (12.0-20.0); CO2, Blood 22 mmol/L (21-32); Calcium, Blood 7.8 mg/dL (8.5-10.1); Chloride, Blood 115 mmol/L (98-108); Creatinine, Blood 2.83 mg/dL (0.40-1.00); Glomerular Filtration Rate 17 (60-); Glucose, Blood 115 mg/dL (70-99); Phosphorus, Blood 4.6 mg/dL (2.5-4.9); Potassium, Blood 3.6 mmol/L (3.5-5.5); Sodium, Blood 143 mmol/L (136-145)
--- NOTE | 2024-05-07 05:52 | NUR ---
SHIFT SUMMARY PT A&O X2. FREQUENT REORIENTED. SITTER AT BEDSIDE. PT TURNED Q2HR AND IS MOVING SELF AROUND IN BED. PT REMOVES O2 AND SPO2 GOES DOWN TO MID 80'S. PT ON 3 LITERS O2 VIA NC. OCC COUGH NOTED. RESP EVEN AND NONLABORED. HTN DURING THE NIGHT REPORTED TO DR WRIGHT AND RESTRATED ON LISINOPRIL. IMPROVED BP AFTER LISINOPRIL. PUREWICK AND ATTENDS CHANGED DURING THE NIGHT. BED ALARM ON. BICARB GTT AT 75 ML/HR. REPORT TO ON COMING NURSE
[2024-05-07] MEDS ORDERED: NS 1,000 ML IV SCH (06:05)
[2024-05-07] MEDS ORDERED: Mag Sulfate 1 GM/D5% 100ML 100 ML IV STA (06:24)
[2024-05-07 08:06] VITALS: BP 103/58
--- NOTE | 2024-05-07 08:58 | NUR ---
am note this rn assumed care at 0700. vital signs stable. tele sinus rhythm 70s. spo2 >90% on 3l nc, patient baseline oxygen. patient is alert and oriented to self and person. patient is forgetful. one on one sitter in room and bed alarm on. patient denies pain, chest pain/pressure or shortness of breath. patient has dim exp wheezes on right mid and lower lobe; left upper and lower lobes dim. see shift assessment for further detials. patient had an unmeasured void, and afterwards kept saying "im full" this rn bladder scanned and bladder scan showing 551. this rn encouraged the patient to pee and patient was able to void about 200, but when trying to void started to have a bowel movement. this rn bladder scanned post void and patient had 231 in bladder. plan of care is up to date at this time.
[2024-05-07] MEDS ORDERED: AmLODIPine Besylate 5 MG Tab PO SCH (09:00)
--- NOTE | 2024-05-07 10:16 | NUR ---
update md bain in room and saw patient. patient switched to medical status no tele.
[2024-05-07] MEDS ORDERED: Ipratropium/Albuterol SulF 2.5-0.5MG/3 ML Amp INH SCH (11:25)
--- NOTE | 2024-05-07 11:30 | NUR ---
UPDATE patient caregiver in and this rn updated on plan of care and possibly needing to go to a nursing home facility for rehab. this rn asked how the patient is at home and if patient is at baseline. caregiver, jordan, stating that she assists in adls and cooking meals and that mentation valdivia this is how the patient is at home as well. caregiver stating she is forgetful and gets confused. kathi fraser, will be in on friday.
[2024-05-07 15:28] VITALS: BP 140/53
--- NOTE | 2024-05-07 16:31 | NUR ---
TRANSFER/SHIFT SUMMARY PT A&OX1, COOPERATIVE, CONFUSION, BARKING COUGH. ON 4L O2. SKIN ASSESSMENT PERFORMED BY MYSELF AND JOSE EDUARDO SERNA. PT IS ABLE TO HOLD CONVERSATION DECENTLY.N POWERFLIDE UPPER RIGHT ARM. COVID POSITIVE, ON DROPLET PRECAUTION.
--- NOTE | 2024-05-07 16:49 | NUR ---
TRANSFER SUMMARY: PT BROUGHT HERE AT 1515, AMS AND COUGHING, HAVING TROUBLE CATCHING HER BREATH. PT ASSISTED WITH TWO NURSES TO BED SIDE COMMODE AND HAD TROUBLE STANDING AND PIVOTING. CLEANED WITH SORE AROUND THE ANUS. COVERED IN BARRIER CREAM. PT TRANSFERRED TO A DIFFERENT ROOM ON THE UNIT AND REPORT GIVEN TO OTHER RN. TRANSFERRED @ ~1600.
[2024-05-07 20:35] VITALS: BP 140/71
[2024-05-07] MEDS ORDERED: Insulin Glargine-Yfgn 100 Unit/mL 3 ML SYR SC SCH (21:00)
--- NOTE | 2024-05-08 01:54 | NUR ---
Patient complaining of shortness of breath, restlessness, RN assessed respiratory function to demonstrate expiratory wheezes, crackles. RN called and notified Dr. Baer, who gave telephone orders for 12.5 grams albumin, 4 mg Bumex IV now r/t hypotension, respiratory status. Orders entered by RN. 2L Oxygen via nasal cannula placed on patient.
[2024-05-08 04:13] VITALS: BP 121/71
[2024-05-08 05:05] LABS: Base Excess Venous -2.9 mmol/L; Bicarbonate Venous 21.9 mmol/L (24.0-30.0); PCO2 Venous 48.7 mmHg (38-42); pH Blood Venous 7.29 (7.34-7.37)
--- NOTE | 2024-05-08 05:22 | NUR ---
Patient alert and oriented to self only this shift, wearing 4L oxygen via nasal cannula, coughing frequently. Patient impulsively getting out of bed intermittently for bathroom needs, requiring one to two person assistance to use bedside commode, also incontinent in brief in bed. Patient tolerating NS @ 50 mL/hr to right upper arm powerglide, scheduled labs drawn from line.
[2024-05-08 05:34] LABS: BASOPHILS ABSOLUTE AUTO 0.01 K/mm3 (0.00-0.23); BASOPHILS PERCENT AUTO 0 % (0-2); EOSINOPHILS ABSOLUTE AUTO 0.06 K/mm3 (0.00-0.68); EOSINOPHILS PERCENT AUTO 1 % (0-6); Hematocrit 28.5 % (33.0-51.0); Hemoglobin 8.9 g/dL (11.5-16.0); IMMATURE GRAN ABSOLUTE AUTO 0.11 K/mm3 (0.00-0.10); IMMATURE GRAN PERCENT AUTO 2 % (0-1); LYMPHOCYTES ABSOLUTE AUTO 0.61 K/mm3 (0.84-5.20); LYMPHOCYTES PERCENT AUTO 12 % (21-46); MONOCYTES ABSOLUTE AUTO 0.47 K/mm3 (0.16-1.47); MONOCYTES PERCENT AUTO 10 % (4-13); Mean Corpuscular HGB 25.1 pg (26.0-34.0); Mean Corpuscular HGB Conc 31.2 g/dL (31.5-36.5); Mean Corpuscular Volume 80 fL (80-100); Mean Platelet Volume 11.7 fL (9.1-12.4); NEUTROPHILS ABSOLUTE AUTO 3.69 K/mm3 (1.96-9.15); NEUTROPHILS PERCENT AUTO 75 % (41-73); Platelet Count 249 K/mm3 (150-400); RDW Coefficient Variation 15.2 % (11.7-14.2); RDW Standard Deviation 44.5 fL (35.1-46.3); Red Blood Cell Count 3.55 M/mm3 (3.80-5.20); White Blood Cell Count 4.95 K/mm3 (4.00-11.30)
[2024-05-08 06:00] LABS: Albumin, Blood 2.7 g/dL (3.4-5.0); Anion Gap 9 mmol/L (3-11); Blood Urea Nitrogen 63 mg/dL (8-24); Bun/Creatinine Ratio 43.4 (12.0-20.0); CO2, Blood 23 mmol/L (21-32); Calcium, Blood 8.6 mg/dL (8.5-10.1); Chloride, Blood 121 mmol/L (98-108); Creatinine, Blood 1.45 mg/dL (0.40-1.00); Glomerular Filtration Rate 38 (60-); Glucose, Blood 118 mg/dL (70-99); Magnesium, Blood 1.5 mg/dL (1.6-2.4); Phosphorus, Blood 3.4 mg/dL (2.5-4.9); Potassium, Blood 3.8 mmol/L (3.5-5.5); Sodium, Blood 149 mmol/L (136-145)
[2024-05-08 07:34] VITALS: BP 110/53
[2024-05-08] MEDS ORDERED: Dextrose 5% 1,000 ML IV SCH ×2 (08:20→10:00)
[2024-05-08] MEDS ORDERED: Sertraline HCl 50 MG Tab PO SCH (09:00)
[2024-05-08] MEDS ORDERED: Magnesium Sulf 2 GM/Water 50ML 50 ML IV ONE (09:45)
[2024-05-08 14:35] VITALS: BP 140/67
--- NOTE | 2024-05-08 15:56 | NUR ---
PATIENT REPEAT SODIUM 150. CALLED AND NOTIFIED DR. WRIGHT. PER DR. WRIGHT CONTINUE DEXTROSE 5% AT 75ML/HR AND ORDER A DIETARY CONSULT FOR CLINIIX. DID LET DR. WRIGHT KNOW THAT DIETARY MAY NOT BE AVAIABLE DUE TO THE WEEKEND. CONSULT PLACED.
[2024-05-08] MEDS ORDERED: Darbepoetin Alfa In Albumn Sol 40 MCG/0.4 ML SC ONE (16:00)
--- NOTE | 2024-05-08 17:17 | NUR ---
SHIFT SUMMARY PT A&OX3/4 ALL DAY, VERY LETHARGIC, SLEEPING MOST OF AFTERNOON. SITTER LEFT PER CHARGE NURSE. PT WAS UP IN CHAIR TODAY FOR SOME TIME. INCONTINENT OF BOWEL AND URINE, WEARING A BRIEF. CURRENTLY USING CIPAP FOR EXCESS C02 BUILDUP. POWERGLIDE SLOW TO DRAW. BED IN LOWEST POSITION, CALL LIGHT WITHIN REACH.
--- NOTE | 2024-05-08 20:56 | NUR ---
RN received call from Dr. Baer regarding patient, MD requested RN enter order for stat sodium level, and call MD back with results. RN entered orders.
[2024-05-08] MEDS ORDERED: ClonazePAM 1 MG Tab PO SCH (21:00)
[2024-05-08 21:30] VITALS: BP 140/63
--- NOTE | 2024-05-08 21:44 | NUR ---
RN called and notified Dr. Baer of latest sodium level, 149. No new orders at this time.
[2024-05-08] MEDS ORDERED: LORazepam 2 MG/ML 1ML Injection IV PRN (22:50)
[2024-05-09 00:05] LABS: Base Excess Venous 0.3 mmol/L; Bicarbonate Venous 24.5 mmol/L (24.0-30.0); PCO2 Venous 46.5 mmHg (38-42); pH Blood Venous 7.35 (7.34-7.37)
--- NOTE | 2024-05-09 00:20 | NUR ---
0000: Restraints removed from patient, order discontinued r/t sitter now at bedside. Patient's behaviors continue.
[2024-05-09] MEDS ORDERED: OLANZapine 10 MG Vial IM ONE (00:55)
[2024-05-09 06:20] VITALS: BP 140/61
[2024-05-09 06:58] LABS: Base Excess Venous 1.7 mmol/L; Bicarbonate Venous 25.4 mmol/L (24.0-30.0); PCO2 Venous 51.7 mmHg (38-42); pH Blood Venous 7.33 (7.34-7.37)
[2024-05-09 07:15] VITALS: BP 146/55
--- NOTE | 2024-05-09 07:17 | NUR ---
Patient alert and oriented x2, restless, agitated, frequently removing pulse ox sensor, oxygen/CPAP. clothing, bed linen, requiring wrist restraints, PRN agitation medications, bedside sitter overnight. Patient responded well to IM Zyprexa, sleeping about 4 hours. Locked wrist restraints in place at this time. Patient incontinent of bladder and bowel in brief in bed, requiring two person mod assist to clean.
[2024-05-09 07:29] LABS: Bun/Creatinine Ratio 31.8 (12.0-20.0); Calcium, Blood 9.1 mg/dL (8.5-10.1); Creatinine, Blood 1.07 mg/dL (0.40-1.00); Magnesium, Blood 1.5 mg/dL (1.6-2.4); Potassium, Blood 3.5 mmol/L (3.5-5.5)
[2024-05-09] MEDS ORDERED: Mag Sulfate 1 GM/D5% 100ML 100 ML IV SCH (08:10)
--- NOTE | 2024-05-09 08:13 | NUR ---
0730: RN REMOVED TUFF CUFFS. CALLED CHARGE NURSE TO NOTIFY. THE PT IS COOPERATIVE WITH CARE AND HAS A 1:1 SITTER. FOLLOWING DIRECTIONS, IN BED. BED BATH AND PERSONAL CARE PERFORMED BY TWO REAL ESTATE ASSISTANT'S. PT IN COVID PRECAUTIONS, 4LPM OXYGEN VIA NC.
[2024-05-09] MEDS ORDERED: Dextrose 5% 1,000 ML IV SCH (08:30)
[2024-05-09] MEDS ORDERED: Aa 4.25%/Calcium/Lytes/D5w 1,000 ML IV SCH (08:35)
[2024-05-09] MEDS ORDERED: Calcitriol 0.25 MCG Cap PO SCH (09:00)
[2024-05-09] MEDS ORDERED: dexAMETHasone 4 MG TAB PO SCH (09:00)
[2024-05-09] MEDS ORDERED: Magnesium Oxide 400 MG Tab PO SCH (09:00)
--- NOTE | 2024-05-09 10:39 | NUR ---
0650: RN RECEIVED VERBAL ORDERS FROM DR. FONG FOR HOSPICE EVALUATION. RN PLACED ORDERS. NO CT SCAN AT THIS TIME. 0800: RN DISCUSSED PT CONDITION WITH FAMILY AT THE BEDSIDE. SISTER LEONORA, SON SCOTT, BROTHER FOSTER. 0930: RN SUCTIONED FROTHY WHITE SPUTUM FROM PT. PLACED HOB GREATER THAN 45 DEGREES. PT'S LUNG SOUNDS BECAME MORE CLEAR AFTER SUCTIONING AND AUDIBLE "GURGGLE" SOUND RESOLVED. FAMILY CONTINUES TO BE AT BEDSIDE.
--- NOTE | 2024-05-09 13:16 | NUR ---
RN CALLED DR. WRIGHT TO REPORT SODIUM VALUE OF 146. DR. WRIGHT WITH ORDERS TO D/C THE DEXTROSE. REDUCE CLEAR CLINEMEX TO 75 ML/HR. ORDER A STAT 5PM SODIUM AND CALL BY 6PM WITH THE RESULT.
[2024-05-09 15:53] VITALS: BP 145/95
--- NOTE | 2024-05-09 18:50 | NUR ---
SANTOSH SPENT MOST OF THIS SHIFT ASLEEP. DESPITE STAFF SITTING 1:1 AND FREQUENT ENCOURAGEMENT, SHE DECLINED TO EAT HER MEALS. SHE OBEYS COMMANDS AND PLEASANTLY COOPERATES WITH STAFF TO ROLL IN BED FOR PERSONAL CARE. INCONTINENT IN ATTENDS. WATERY GREEN LOOSE STOOL. POWERGLIDE TO THE RIGHT FOREARM INFUSING CLEAR CLINEMEX AT 75ML/HR. PT'S SODIUM LEVEL HAS DECREASED TO 145, WNL. ROOM AIR. WHEN SANTOSH WAKES UP AND IS ALERT, SHE DOES PULL AT HER GOWN AND IV TUBING. SHE HAS REMAINED MOSTLY LETHARGIC THIS SHIFT.
[2024-05-09 20:04] VITALS: BP 160/77
[2024-05-10 05:36] VITALS: BP 154/67
--- NOTE | 2024-05-10 06:41 | NUR ---
SUMMARY: PT A/O TO SELF, PLACE AND SITUATION BUT SHE'S FORGETFUL AND IMPULSIVE AT TIMES. 1:[address] FOR MAINTENANCE OF LINES AND FALL PREVENTION. BED ALARM ON AND 1PA REQ'D OOB. ATTENDS CHANGED PRN FOR URGE INCONTINENCE AND PT CONT'S TO HAVE OCC.LOOSE GREEN STOOL. SHE REMAINS IN ISO FOR COVID ON 4L O2 W/MOIST COUGH AND BILAT WHEEZES AUSCULTATED. BREATHING TX'S RECEIVED BY RT AND CONT BIOX IS INTACT. CLINIMIX INFUSES VIA R.ARM PG AND PT CONT'S TO LACK APPETITE DESPITE PO ENCOURAGEMENT. NO ACUTE CHANGES. SHE REMAINS ON TELE IN NSR AT 7O'S BPM. VSS/AFEBRILE. WCTM AND REPORT TO DAY RN.
[2024-05-10 07:02] LABS: Base Excess Venous 3.9 mmol/L; Bicarbonate Venous 27.4 mmol/L (24.0-30.0); PCO2 Venous 50.5 mmHg (38-42); pH Blood Venous 7.37 (7.34-7.37)
[2024-05-10 07:10] LABS: Albumin, Blood 2.6 g/dL (3.4-5.0); Anion Gap 7 mmol/L (3-11); Blood Urea Nitrogen 26 mg/dL (8-24); Bun/Creatinine Ratio 24.8 (12.0-20.0); CO2, Blood 28 mmol/L (21-32); Calcium, Blood 9.3 mg/dL (8.5-10.1); Chloride, Blood 116 mmol/L (98-108); Creatinine, Blood 1.05 mg/dL (0.40-1.00); Glomerular Filtration Rate 56 (60-); Glucose, Blood 196 mg/dL (70-99); Magnesium, Blood 1.9 mg/dL (1.6-2.4); Phosphorus, Blood 3.4 mg/dL (2.5-4.9); Potassium, Blood 3.5 mmol/L (3.5-5.5); Sodium, Blood 147 mmol/L (136-145)
[2024-05-10 07:14] VITALS: BP 160/72
[2024-05-10 07:15] LABS: Hematocrit 28.8 % (33.0-51.0); Hemoglobin 8.8 g/dL (11.5-16.0)
[2024-05-10] MEDS ORDERED: Banana Flakes/Tos 1 EA Powder Pack PO SCH (13:35)
[2024-05-10 14:26] VITALS: BP 154/69
--- NOTE | 2024-05-10 16:10 | NUR ---
SUMMARY - PT A&O X 3, CONFUSED, MINIMAL SHORT TERM MEMORY, 1:1 SITTER TO PREVENT PULLING OFF O2 AND IV'S. PT ON 4 L OF O2 LUNGS DIMINISHED W FREQUENT WHEEZES, COUGH WITH MINIMAL PRODUCTION. ROUTINE NEBULIZER TREATMENTS BID, CONTINOUS BIOX AT >90%. CLINIMIX DC, PT TOLERATING PO FLUIDS MINIMAL SOLID FOOD INTAKE, NO APPETITE, DIFFICULTY EATING RELATED TO SOB. SOB ON EXERTION. BS 170'S, 280S, CURRENTLY ONLY RECIEVED GLARGLINE HS. 3 LOOSE GREEN BOWEL MOVEMENT, DC MAG OX, STARTED BANANA FLAKES FOR LOOSE STOOLS. CONT/INCONT WHEN BEING TOLD. DAUGHTER AT BEDSIDE MOST OF THE AFTERNOON, SUPPORTIVE IN PATIENT CARE. PLAN FOR SNF, WORKED WITH PHYSICAL THERAPY W/ LIGHT HEADNESS ON STANDING. INCONTINENT, UNABLE TO OBTAIN ACCURATE OUTPUT, BUT GFR 56. WILL REPORT TO NIGHT NURSE.
--- NOTE | 2024-05-10 16:17 | NUR ---
[address] BLAKE TO NOTIFY HIM OF BLOOD SUGAR 280, DOES NOT WANT TO START GLIPIZIDE PT USING AT HOME AND NO SS ORDERED, WILL CONT TO DAVINA. NO CHANGE IN LONG ACTING GLARGENE. ALSO NOTIFIED OF DIARRHEA, ORDER FOR BANANA FLAKES, AND DC MG OX. DOES NOT WANT SPECIMEN YET
[2024-05-10 18:00] VITALS: BP 155/69
[2024-05-10 19:43] VITALS: BP 174/67
[2024-05-10] MEDS ORDERED: ClonazePAM 0.5 MG Tab PO SCH (21:00)
[2024-05-11 02:46] VITALS: BP 168/65
--- NOTE | 2024-05-11 04:59 | NUR ---
SHIFT SUMMARY: Pt is admitted for acute on chronic kidney injury and is a full code. Is alert and able to make most needs known. ADLs have been mostly 1p on enhanced ISO for covid. Denies pain or discomfort when asked. Power glide to right upper is patent with dressing that is CDI. did wear CPAP for about 2 hours this shift but took it off stating that it makes her feel like she is in a closed space.
[2024-05-11 07:15] LABS: Hematocrit 31.4 % (33.0-51.0); Hemoglobin 9.7 g/dL (11.5-16.0)
[2024-05-11 07:26] VITALS: BP 153/94
[2024-05-11 07:27] LABS: Albumin, Blood 2.8 g/dL (3.4-5.0); Anion Gap 9 mmol/L (3-11); Blood Urea Nitrogen 24 mg/dL (8-24); Bun/Creatinine Ratio 22.9 (12.0-20.0); CO2, Blood 29 mmol/L (21-32); Calcium, Blood 9.2 mg/dL (8.5-10.1); Chloride, Blood 113 mmol/L (98-108); Creatinine, Blood 1.05 mg/dL (0.40-1.00); Glomerular Filtration Rate 56 (60-); Glucose, Blood 130 mg/dL (70-99); Magnesium, Blood 1.7 mg/dL (1.6-2.4); Phosphorus, Blood 3.2 mg/dL (2.5-4.9); Potassium, Blood 3.5 mmol/L (3.5-5.5); Sodium, Blood 147 mmol/L (136-145)
[2024-05-11] MEDS ORDERED: Megestrol Acetate Susp 400MG/10ML UDC PO SCH (09:00)
[2024-05-11] MEDS ORDERED: Loperamide HCl 2 MG Cap PO PRN (15:40)
[2024-05-11] MEDS ORDERED: dexAMETHasone 4 MG TAB PO SCH (16:00)
[2024-05-11] MEDS ORDERED: D5W-1/2NS 1,000 ML IV SCH (16:00)
[2024-05-11 16:45] VITALS: BP 169/71
--- NOTE | 2024-05-11 17:50 | NUR ---
SUMMARY- PT A/O X2, BLIND, FREQUENTLY CONFUSED AND FORGETFUL. PT GOT UP TO BSC THIS AM AND SAT IN THE CHAIR THROUGH LUNG. HAD BITES FOR BREAKFAST AND REFUSED LUNCH. TAKING IN WATER AND REFUSING FOOD, STATES SHE HATES THE WAY IT TASTES. ALSO REFUSED ENSURE FAMILY STATES THEY WILL TRY TO BRING FOOD SHE LIKES. PT IS INCONT/CONTINENT, HAD 2 LOOSE GREEN MUCOUSY STOOLS. REFUSING BANANATROL. STARTED ON IMMODIUM AND PROBIOTIC. RESTARTED DEXAMETHASONE AND RESTERTED IVF THIS PM AROUND 1700 RELATED TO POOR PO INTAKE. PT'S LUNGS LESS WHEEZY TODAY, CONT DIM T/O, OCC TICKLEY COUGH MIN PRODUCTION. OXYGEN AT 4L, SATTING 94-98%. DC'D 1:1 SITTER, HAS NOT TRIED TO PULL OXYGEN OFF OR IV OUT. ONE ATTEMPT TO GET OOB UNATTENDED, BED ALROM WENT OFF. WILL REPORT TO PAIGE SERNA
[2024-05-11 19:47] VITALS: BP 163/64
[2024-05-11] MEDS ORDERED: Lactobacil 2-S.Thermo-Bifido 1 1 Cap PO SCH (21:00)
--- NOTE | 2024-05-11 22:43 | NUR ---
2031 PT LYING IN BED, REPORTS SLIGHT NAUSEA BUT DOES NOT FEEL LIKE SHE NEEDS MEDS YET. REDNESS/SBD ON BOTTOM, USING CREAM. NO OTHER APPARENT SIGNS OF DISTRESS. CALL LIGHT IS IN REACH. BED ALARM IS ON.
--- NOTE | 2024-05-11 22:44 | NUR ---
2200 ASSISTED BATCH AND FURNACE MANAGER IN CHANGING AND TURNING PT. NO APPARENT SIGNS OF DISTRESS. CALL LIGHT IS IN REACH. BED ALARM IS ON. PT DENIES NEED FOR ANYTHING ELSE AT THIS TIME.
--- NOTE | 2024-05-12 01:54 | NUR ---
0000 PT LYING IN BED, EYES CLOSED, APPEARS TO BE RESTING. BREATHING IS EVEN, UNLABORED. NO APPARENT SIGNS OF DISTRESS. CALL LIGHT IS IN REACH. BED ALARM IS ON.
--- NOTE | 2024-05-12 01:55 | NUR ---
ASSISTED DROPPER TANK STORAGE IN TURNING PT, NO APPARENT SIGNS OF DISTRESS. PT'S ATTENDS ARE CLEAN AND DRY AT THIS TIME. CALL LIGHT IS IN REACH. BED ALARM IS ON.
[2024-05-12 04:20] VITALS: BP 168/76
--- NOTE | 2024-05-12 06:15 | NUR ---
0400 PT HAD O2 ON TOP OF NOSE, PLACED NC BACK IN PT'S NOSE, PT ASSISTED. NO OTHER APPARENT SIGNS OF DISTRESS. CALL LIGHT IS IN REACH. BED ALARM IS ON.
--- NOTE | 2024-05-12 06:16 | NUR ---
AAO TO SELF. ON 4L NC HUMIDIFIED O2. DENES SOB. REPORTED SLIGHT NAUSEA THAT DID NOT APPEAR TO WORSEN. REDNESS ON BOTTOM, USING CREAM. BS WAS 229.
--- NOTE | 2024-05-12 06:31 | NUR ---
PT LYING IN BED, EYES CLOSED, APPEARS TO BE RESTING. BREATHING IS EVEN, UNLABORED. NO APPARENT SIGNS OF DISTRESS. CALL LIGHT IS IN REACH. NO OTHER CHANGES THIS SHIFT.
[2024-05-12 06:54] LABS: Hematocrit 30.4 % (33.0-51.0); Hemoglobin 9.7 g/dL (11.5-16.0)
[2024-05-12 07:09] LABS: Albumin, Blood 2.7 g/dL (3.4-5.0); Anion Gap 11 mmol/L (3-11); Blood Urea Nitrogen 21 mg/dL (8-24); Bun/Creatinine Ratio 20.8 (12.0-20.0); CO2, Blood 29 mmol/L (21-32); Calcium, Blood 8.6 mg/dL (8.5-10.1); Chloride, Blood 109 mmol/L (98-108); Creatinine, Blood 1.01 mg/dL (0.40-1.00); Glomerular Filtration Rate 59 (60-); Glucose, Blood 208 mg/dL (70-99); Magnesium, Blood 1.5 mg/dL (1.6-2.4); Phosphorus, Blood 3.8 mg/dL (2.5-4.9); Sodium, Blood 145 mmol/L (136-145)
[2024-05-12 07:10] VITALS: BP 148/56
[2024-05-12] MEDS ORDERED: Mag Sulfate 1 GM/D5% 100ML 100 ML IV STA (08:06)
[2024-05-12 15:20] VITALS: BP 144/70
--- NOTE | 2024-05-12 17:06 | NUR ---
SHIFT SUMMARY PT A&OX4 (SLOW TO RECALL INFORMATION), COOPERATIVE, ABLE TO MAKE NEEDS KNOWN. SPENT MOST OF THE DAY IN THE RECLINER, PT REPORTED NOT WANTING BE LAY DOWN IN BED. PT ATE EVERY MEAL AND CBG LEVELS INCREASED, MD INFORMED NO SLIDING SCALE WAS ORDERED, MD ORDERED HIGH SLIDING SCALE. WILL MEDICATE WITH INSULIN. CALLIGHT WITHIN REACH, BED IN LOWEST POSITION.
[2024-05-12] MEDS ORDERED: Insulin Regular 100 UNIT/ML 10ML Vial SC SCH ×2 (17:40→21:00)
[2024-05-12 19:48] VITALS: BP 162/54
[2024-05-12] MEDS ORDERED: Insulin Glargine-Yfgn 100 Unit/mL 3 ML SYR SC SCH (21:00)
[2024-05-13 04:16] VITALS: BP 177/70
[2024-05-13 05:33] LABS: Hematocrit 29.9 % (33.0-51.0); Hemoglobin 9.5 g/dL (11.5-16.0)
[2024-05-13 05:53] LABS: Albumin, Blood 2.8 g/dL (3.4-5.0); Anion Gap 9 mmol/L (3-11); Blood Urea Nitrogen 29 mg/dL (8-24); CO2, Blood 29 mmol/L (21-32); Chloride, Blood 109 mmol/L (98-108); Creatinine, Blood 1.21 mg/dL (0.40-1.00); Glomerular Filtration Rate 47 (60-); Glucose, Blood 146 mg/dL (70-99); Magnesium, Blood 1.8 mg/dL (1.6-2.4); Phosphorus, Blood 3.9 mg/dL (2.5-4.9); Potassium, Blood 3.3 mmol/L (3.5-5.5); Sodium, Blood 144 mmol/L (136-145)
--- NOTE | 2024-05-13 06:27 | NUR ---
NO ACUTE CHANGES OVERNIGHT. DISCUSSED K+ 3.[address] WRIGHT AT BEDSIDE. HE WOULD LIKE TO GIVE 20 MEQ K+ PO X 1.
[2024-05-13 07:08] VITALS: BP 150/49
[2024-05-13] MEDS ORDERED: Potassium Chloride 10 Meq Tablet SA PO ONE (07:15)
[2024-05-13 15:25] VITALS: BP 166/80
--- NOTE | 2024-05-13 17:20 | NUR ---
SHIFT SUMMARY PT A&OX3/4, COOPERATIVE, ABLE TO MAKE NEEDS KNOWN. BEFORE NOON, PT WAS COHERENT AND ABLE TO MAKE NEEDS KNOWN. ABOUT 2/3PM PT STARTED TO EXPLAIN SITUATIONS INCOHERENTLY. PRIOR, THIS RN CHANGED THE POWERGLIDE DRESSING WITHOUT CONCERNS. CONSTANTLY REASSURING PT TO RELIEVE ANXIETY. CBG DURING LUNCH WAS 422, RETEST SHOWED APPROX 252, MEDICATED WITH HUMILIN R. STILL ON 4L O2. PT IS CURRENTLY IN BED WATCHING TV, BED IN LOWEST POSITION, CALL LIGHT WITHIN REACH.
[2024-05-13 20:13] VITALS: BP 151/69
[2024-05-14 05:26] VITALS: BP 168/63
[2024-05-14 06:17] LABS: Hematocrit 30.6 % (33.0-51.0); Hemoglobin 9.7 g/dL (11.5-16.0)
[2024-05-14 06:39] LABS: Albumin, Blood 2.8 g/dL (3.4-5.0); Anion Gap 9 mmol/L (3-11); Blood Urea Nitrogen 28 mg/dL (8-24); Bun/Creatinine Ratio 23.1 (12.0-20.0); CO2, Blood 28 mmol/L (21-32); Calcium, Blood 8.9 mg/dL (8.5-10.1); Chloride, Blood 110 mmol/L (98-108); Creatinine, Blood 1.21 mg/dL (0.40-1.00); Glomerular Filtration Rate 47 (60-); Glucose, Blood 139 mg/dL (70-99); Magnesium, Blood 1.6 mg/dL (1.6-2.4); Potassium, Blood 3.3 mmol/L (3.5-5.5); Sodium, Blood 144 mmol/L (136-145)
[2024-05-14 07:37] VITALS: BP 160/63
--- NOTE | 2024-05-14 10:24 | NUR ---
All A.M. checks performed by Nurse. Late callin to shift. When I arrived patient is extremely agitated suspicious and refusing tx and services. Triggered at all sounds so door closed. Was able to convince her Oxygen canula nescessary by pointing out the loud beeping is from her being low. still not believing but at least she comprehends beeping will stop if she wears it. Replaced water for oxygen. Slow calm steps toward up out of bed and minor grooming. VERY VICIOUS GRUMPY. Up in chair w chair alarm for breakfast. Alerted r.n. ready for meds. Then strip bed and remove all excess garbage and linens. Sweep and mop since the gravel weigher was rejected per 3 days. Assist w phone calls to steven. "Their forcing me against my will to use all these..." care home through sentence pause, then angry and then repeat x4, then hung up on daughter in frustration. Daughter called back. I finished my setup and cleanup and left her to her phone call. Clean, safe and phone and call light in front of her.
[2024-05-14 14:57] VITALS: BP 160/68
--- NOTE | 2024-05-14 17:28 | NUR ---
SHIFT SUMMARY PT A&OX3/4, COOPERATIVE, ANXIOUS AND "SUNDOWNING" THIS EVENING. ISOLATION ORDER WAS COMPLETED TODAY FROM COVID RAPID NEGATIVE RESULT. CASE MANAGEMENT INFORMED THIS RN THAT 1 MORE COVID TEST TO BE PERFORMED IN MORNING, IF NEGATIVE, [facility] WILL ACCEPT PT. BLOOD SUGARS BEING TREATED WITH HUMULIN R. CHAIR ALARM ACTIVE, BED IN LOWEST POSITION, CALL LIGHT WITHIN REACH.
[2024-05-14 19:19] VITALS: BP 159/95
[2024-05-15 05:22] VITALS: BP 146/49
[2024-05-15 06:02] LABS: Hemoglobin 9.9 g/dL (11.5-16.0)
[2024-05-15 06:31] LABS: Anion Gap 10 mmol/L (3-11); Blood Urea Nitrogen 28 mg/dL (8-24); Bun/Creatinine Ratio 21.5 (12.0-20.0); CO2, Blood 28 mmol/L (21-32); Chloride, Blood 110 mmol/L (98-108); Glomerular Filtration Rate 43 (60-); Glucose, Blood 144 mg/dL (70-99); Magnesium, Blood 1.9 mg/dL (1.6-2.4); Phosphorus, Blood 4.6 mg/dL (2.5-4.9); Potassium, Blood 3.5 mmol/L (3.5-5.5); Sodium, Blood 144 mmol/L (136-145)
[2024-05-15 07:03] VITALS: BP 153/67
[2024-05-15] MEDS ORDERED: Megestrol Acetate Susp 400MG/10ML UDC PO SCH (09:00)
[2024-05-15] MEDS ORDERED: Acetaminophen325 M1 PO (12:27)
[2024-05-15] MEDS ORDERED: ALBU2.5V5 INH (12:27)
[2024-05-15] MEDS ORDERED: Amlodipine Bes2.5 MG PO (12:27)
[2024-05-15] MEDS ORDERED: BANATROL PLUS1 EAC1 PO (12:28)
[2024-05-15] MEDS ORDERED: HUMULIN R100 UNIT/2 SC (12:28)
[2024-05-15] MEDS ORDERED: IPRAT-ALBUT 0.5-3 ML INH (12:29)
[2024-05-15] MEDS ORDERED: LOPE2C PO (12:29)
[2024-05-15] MEDS ORDERED: MEGESTROL400 MG/11 PO (12:30)
[2024-05-15] MEDS ORDERED: MICONAZOLE NITR85 GM TOP (12:31)
[2024-05-15] MEDS ORDERED: VISBIOME 112.51 EACH PO (12:31)
--- NOTE | 2024-05-15 13:28 | NUR ---
DISCHARGE SUMMARY PATIENT DISCHARGED TO [facility] THIS SHIFT. POWERGLIDE REMOVED PRIOR WITHOUT COMPLICATION. ATTEMPTED TO CALL REPORT X3 WITH NO ANSWER, NO MESSAGE LEFT. DISHCARGE PACKET SENT IN ENVELOPE WITH PATIENT TRANSPORT. WENT IN WHEELCHAIR ON 2 LITERS OXYGEN. SENT IN PATIENT GOWN, PATIENT CLOTHING SOILED AND UNSUITABLE TO BE PLACED BACK IN. A/O X2 ON DISCHARGE.
== END 2024-05-15 13:20 | DRG 177 ==
LOC: ER 23:35 → ERHOLD 23:36 → PCU 23:36 → ERHOLD 23:36 → PCU 05-06 07:56 → MEDS 05-06 14:52 → PCU 05-06 14:53 → MEDS 05-07 15:12
PROVIDERS: Emergency Medicine; Family Medicine; Internal Medicine; Internal Medicine Nephrology; ADMIT Internal Medicine
PROC: 8E0ZXY6 Isolation (ICD-10-PCS; principal; 2024-05-07)
PROC: 4A033R1 Measurement of Arterial Saturation, Peripheral, Percutaneous Approach (ICD-10-PCS; 2024-05-09)
PROC: 3E0333Z Introduction of Anti-inflammatory into Peripheral Vein, Percutaneous Approach (ICD-10-PCS; 2024-05-09)
DX: U07.1 COVID-19 (principal); G92.8 Other toxic encephalopathy; J96.21 Acute and chronic respiratory failure with hypoxia; J96.22 Acute and chronic respiratory failure with hypercapnia; E87.21 Acute metabolic acidosis; J44.1 Chronic obstructive pulmonary disease with (acute) exacerbation; N17.9 Acute kidney failure, unspecified; I50.32 Chronic diastolic (congestive) heart failure; E87.0 Hyperosmolality and hypernatremia; I13.0 Hypertensive heart and chronic kidney disease with heart failure and stage 1 through stage 4 chronic kidney disease, or unspecified chronic kidney disease; N25.81 Secondary hyperparathyroidism of renal origin; E87.4 Mixed disorder of acid-base balance; F03.911 Unspecified dementia, unspecified severity, with agitation; F03.918 Unspecified dementia, unspecified severity, with other behavioral disturbance; Z68.41 Body mass index [BMI] 40.0-44.9, adult; N39.0 Urinary tract infection, site not specified; I25.10 Atherosclerotic heart disease of native coronary artery without angina pectoris; M19.90 Unspecified osteoarthritis, unspecified site; E11.42 Type 2 diabetes mellitus with diabetic polyneuropathy; E78.5 Hyperlipidemia, unspecified; N18.32 Chronic kidney disease, stage 3b; E11.22 Type 2 diabetes mellitus with diabetic chronic kidney disease; F17.210 Nicotine dependence, cigarettes, uncomplicated; R63.0 Anorexia; E83.42 Hypomagnesemia; D63.1 Anemia in chronic kidney disease; Z90.49 Acquired absence of other specified parts of digestive tract; Z90.81 Acquired absence of spleen; Z79.899 Other long term (current) drug therapy; Z88.2 Allergy status to sulfonamides; Z95.5 Presence of coronary angioplasty implant and graft; Z90.12 Acquired absence of left breast and nipple; Z98.890 Other specified postprocedural states; Z79.84 Long term (current) use of oral hypoglycemic drugs; Z79.811 Long term (current) use of aromatase inhibitors; Z99.81 Dependence on supplemental oxygen; Z91.81 History of falling; E86.0 Dehydration; Z79.4 Long term (current) use of insulin
CPT/HCPCS: 0241U; 36415; 36600; 51701; 70450; 71045; 71250; 72125; 72170; 74176; 80048; 80053; 80069; 81001; 82550; 82728; 82803; 82947; 83540; 83550; 83605; 83735; 83880; 84100; 84145; 84295; 84443; 84484; 85014; 85018; 85025; 87040; 87086; 93005; 93010; 94640; 94660; 94664; 94667; 94760; 94762; 96365; 97110; 97116; 97162; 97530; 99285-25; A9270; G0378; G0480; J0456; J0696; J0881; J1100; J1644; J1815; J2060; J3475; J7030; J7042; J7050; J7070

== ENCOUNTER 2024-07-27 17:56 | Emergency (ER) | payer MEDICARE ==
[~2024-07-27] VITALS: Ht 167.6 cm; Wt 77.1 kg
[~2024-07-27 17:56] MED LIST changes: +Acetaminophen325 M1 PO; +Amlodipine Bes2.5 MG PO; +BANATROL PLUS1 EAC1 PO; +BASAGLAR K100 UNIT/1 SC; +CALC.25 PO; +FURO40 PO; +GLIP5 PO; +HUMULIN R100 UNIT/2 SC; +IPRAT-ALBUT 0.5-3 ML INH; +MEGESTROL400 MG/11 PO; +MICONAZOLE NITR85 GM TOP; +VISBIOME 112.51 EACH PO; +Vistaril25 MG PO
[2024-07-27] MEDS ORDERED: MethylPREDNISolone Sod Succ 125 MG Vial IV ONE (20:10)
[2024-07-27] MEDS ORDERED: Albuterol 2.5 MG/3 ML VIAL INH SCH (20:15)
[2024-07-27 20:18] LABS: BASOPHILS ABSOLUTE AUTO 0.03 K/mm3 (0.00-0.23); BASOPHILS PERCENT AUTO 1 % (0-2); EOSINOPHILS ABSOLUTE AUTO 0.73 K/mm3 (0.00-0.68); EOSINOPHILS PERCENT AUTO 12 % (0-6); Hematocrit 31.2 % (33.0-51.0); Hemoglobin 9.7 g/dL (11.5-16.0); IMMATURE GRAN ABSOLUTE AUTO 0.02 K/mm3 (0.00-0.10); IMMATURE GRAN PERCENT AUTO 0 % (0-1); LYMPHOCYTES ABSOLUTE AUTO 1.11 K/mm3 (0.84-5.20); LYMPHOCYTES PERCENT AUTO 18 % (21-46); MONOCYTES ABSOLUTE AUTO 0.67 K/mm3 (0.16-1.47); MONOCYTES PERCENT AUTO 11 % (4-13); Mean Corpuscular HGB 27.8 pg (26.0-34.0); Mean Corpuscular HGB Conc 31.1 g/dL (31.5-36.5); Mean Corpuscular Volume 89 fL (80-100); Mean Platelet Volume 11.7 fL (9.1-12.4); NEUTROPHILS ABSOLUTE AUTO 3.56 K/mm3 (1.96-9.15); NEUTROPHILS PERCENT AUTO 58 % (41-73); Platelet Count 165 K/mm3 (150-400); RDW Coefficient Variation 17.6 % (11.7-14.2); RDW Standard Deviation 58.4 fL (35.1-46.3); Red Blood Cell Count 3.49 M/mm3 (3.80-5.20); White Blood Cell Count 6.12 K/mm3 (4.00-11.30)
[2024-07-27 20:43] LABS: Albumin, Blood 3.1 g/dL (3.4-5.0); Albumin/Globulin Ratio 0.8 (0.8-1.8); Bilirubin, Total 0.3 mg/dL (0.1-1.0); Bun/Creatinine Ratio 19.6 (12.0-20.0); Calcium, Blood 8.2 mg/dL (8.5-10.1); Creatinine, Blood 1.58 mg/dL (0.40-1.00); Globulin, Blood 3.9 g/dL (2.2-4.0)
[2024-07-27 21:16] LABS: Influenza A, PCR NEGATIVE (NEGATIVE); Influenza B, PCR NEGATIVE (NEGATIVE); Resp Syncytial Virus, PCR NEGATIVE (NEGATIVE); SARS-Cov-2 (COVID-19) PCR, MMC NEGATIVE (NEGATIVE)
[2024-07-27] MEDS ORDERED: Prednisone20 MG PO (21:37)
[2024-07-27 22:00] VITALS: BP 112/50
== END 2024-07-27 23:32 | disposition home or self-care (01) ==
LOC: ER 17:56
PROVIDERS: Emergency Medicine
DX: J44.9 Chronic obstructive pulmonary disease, unspecified (principal); I50.32 Chronic diastolic (congestive) heart failure; E11.22 Type 2 diabetes mellitus with diabetic chronic kidney disease; N18.30 Chronic kidney disease, stage 3 unspecified; I25.10 Atherosclerotic heart disease of native coronary artery without angina pectoris; E78.5 Hyperlipidemia, unspecified; E11.42 Type 2 diabetes mellitus with diabetic polyneuropathy; F17.210 Nicotine dependence, cigarettes, uncomplicated; Z88.2 Allergy status to sulfonamides; Z79.4 Long term (current) use of insulin; Z79.84 Long term (current) use of oral hypoglycemic drugs; Z79.899 Other long term (current) drug therapy
CPT/HCPCS: 0241U; 71045; 80053; 83880; 84484; 85025; 93005; 93010; 94644; 94664; 96374; 99285-25; J2919

== ENCOUNTER 2024-09-10 08:54 | Inpatient (IN) | payer MEDICARE ==
[~2024-09-10] VITALS: Ht 172.7 cm; Wt 84.0 kg
[~2024-09-10 08:54] MED LIST changes: +Prednisone20 MG PO
[2024-09-10] MEDS ORDERED: Dextrose 50% 50 ML Vial ONE (08:58)
[2024-09-10] MEDS ORDERED: Dextrose 50% 50 ML Syringe IV ONE (09:00)
[2024-09-10] MEDS ORDERED: MethylPREDNISolone Sod Succ 125 MG Vial IV ONE (09:10)
[2024-09-10] MEDS ORDERED: Albuterol 2.5 MG/3 ML VIAL INH SCH (09:10)
[2024-09-10] MEDS ORDERED: Ipratropium/Albuterol SulF 2.5-0.5MG/3 ML Amp INH ONE (09:10)
[2024-09-10 09:13] LABS: Calcium, Ionized (POC) 1.11 mmol/L (1.10-1.46); Chloride (POC) 102 mmol/L (98-108); Creatinine (POC) 2.3 mg/dL (0.6-1.0); Glucose (ISTAT POC) 190 mg/dL (70-99); Hemoglobin (POC) 9.2 g/dL (12.0-16.0); Potassium (POC) 4.4 mmol/L (3.5-5.5); Sodium (POC) 136 mmol/L (135-148); Total CO2 (POC) 26 mmol/L (21-32)
[2024-09-10] MEDS ORDERED: NS 1,000 ML IV SCH (09:15)
[2024-09-10 09:16] LABS: Bicarbonate Venous 21.2 mmol/L (24.0-30.0); PCO2 Venous 61.4 mmHg (38-42)
[2024-09-10 09:18] LABS: pH Blood Venous 7.21 (7.34-7.37)
[2024-09-10 09:20] LABS: BASOPHILS ABSOLUTE AUTO 0.02 K/mm3 (0.00-0.23); BASOPHILS PERCENT AUTO 0 % (0-2); EOSINOPHILS ABSOLUTE AUTO 0.24 K/mm3 (0.00-0.68); EOSINOPHILS PERCENT AUTO 4 % (0-6); Hematocrit 29.8 % (33.0-51.0); Hemoglobin 9.2 g/dL (11.5-16.0); IMMATURE GRAN ABSOLUTE AUTO 0.01 K/mm3 (0.00-0.10); IMMATURE GRAN PERCENT AUTO 0 % (0-1); LYMPHOCYTES ABSOLUTE AUTO 0.43 K/mm3 (0.84-5.20); LYMPHOCYTES PERCENT AUTO 8 % (21-46); MONOCYTES ABSOLUTE AUTO 0.62 K/mm3 (0.16-1.47); MONOCYTES PERCENT AUTO 11 % (4-13); Mean Corpuscular HGB 26.4 pg (26.0-34.0); Mean Corpuscular HGB Conc 30.9 g/dL (31.5-36.5); Mean Corpuscular Volume 85 fL (80-100); NEUTROPHILS ABSOLUTE AUTO 4.39 K/mm3 (1.96-9.15); NEUTROPHILS PERCENT AUTO 77 % (41-73); Platelet Count 240 K/mm3 (150-400); RDW Coefficient Variation 14.6 % (11.7-14.2); RDW Standard Deviation 45.5 fL (35.1-46.3); Red Blood Cell Count 3.49 M/mm3 (3.80-5.20); White Blood Cell Count 5.71 K/mm3 (4.00-11.30)
[2024-09-10 09:40] LABS: Magnesium, Blood 1.4 mg/dL (1.6-2.4)
[2024-09-10 09:53] LABS: Alanine Aminotransfer (ALT/SGP 16 U/L (12-78); Albumin, Blood 2.4 g/dL (3.4-5.0); Albumin/Globulin Ratio 0.6 (0.8-1.8); Alk Phos 78 U/L (50-136); Anion Gap 13 mmol/L (3-11); Aspartate Aminotrans (AST/SGOT 22 U/L (12-37); Bilirubin, Direct <0.1 mg/dL (0.0-0.3); Bilirubin, Indirect Unable to Calculate mg/dL (0.1-0.7); Bilirubin, Total 0.2 mg/dL (0.1-1.0); Blood Urea Nitrogen 58 mg/dL (8-24); Bun/Creatinine Ratio 27.4 (12.0-20.0); CO2, Blood 22 mmol/L (21-32); Calcium, Blood 8.3 mg/dL (8.5-10.1); Chloride, Blood 106 mmol/L (98-108); Creatinine, Blood 2.12 mg/dL (0.40-1.00); Globulin, Blood 4.2 g/dL (2.2-4.0); Glomerular Filtration Rate 24 (60-); Glucose, Blood 200 mg/dL (70-99); Potassium, Blood 4.5 mmol/L (3.5-5.5); Sodium, Blood 136 mmol/L (136-145); Total Protein, Blood 6.6 g/dL (6.4-8.2)
[2024-09-10 10:22] LABS: Source, Urine Straight Cath
[2024-09-10] MEDS ORDERED: Azithromycin 500 MG in NS 250 ML IV ONE (10:35)
[2024-09-10 10:48] LABS: Influenza A, PCR NEGATIVE (NEGATIVE); Influenza B, PCR NEGATIVE (NEGATIVE); Resp Syncytial Virus, PCR NEGATIVE (NEGATIVE); SARS-Cov-2 (COVID-19) PCR, MMC NEGATIVE (NEGATIVE)
[2024-09-10 11:08] LABS: Appearance, Urine Hazy (Clear); Bilirubin, Urine Neg (Neg); Blood, Urine Neg (Neg); Color, Urine Yellow (P-Yellow); Glucose Qualitative, Urine Neg (Neg); Ketones, Urine Neg (Neg); Leukocyte Esterase, Urine 2+ (Neg); Nitrite, Urine Neg (Neg); Protein, Urine 1+ (Neg); Urobilinogen, Urine NORM (Normal)
[2024-09-10 11:21] LABS: Hyaline Casts 25-50 /lpf (0-2)
[2024-09-10 11:33] LABS: Red Blood Cells, Urine 0-2 /hpf (0-2)
[2024-09-10 11:34] LABS: Bacteria Many /hpf; Squamous Epithelial Cells Rare /hpf (Few)
[2024-09-10 11:35] LABS: Amorphous Mod (0-Heavy)
[2024-09-10] MEDS ORDERED: FLU VACC TS2024-25(6MOS UP)/PF 45 MCG/0.5 ML SYRINGE IM ONE (11:50)
[2024-09-10] MEDS ORDERED: Ipratropium/Albuterol SulF 2.5-0.5MG/3 ML Amp INH SCH (11:50)
[2024-09-10] MEDS ORDERED: Magnesium Hydroxide Conc 10 ML UDC PO PRN (11:50)
[2024-09-10] MEDS ORDERED: FLU VACC TS2024-25(6MOS UP)/PF 45 MCG/0.5 ML SYRINGE IM SCH (11:55)
[2024-09-10 12:03] LABS: Base Excess Venous -8.1 mmol/L; Bicarbonate Venous 18.1 mmol/L (24.0-30.0); PCO2 Venous 49.5 mmHg (38-42); pH Blood Venous 7.21 (7.34-7.37)
[2024-09-10] MEDS ORDERED: OLANZapine 10 MG Vial IM ONE (12:40)
[2024-09-10] MEDS ORDERED: OLANZapine ODT 5 MG Tab MM PRN (12:40)
[2024-09-10] MEDS ORDERED: CefTRIAXone Sodium 1,000 MG in NS 100 ML IV SCH (15:11)
[2024-09-10] MEDS ORDERED: MethylPREDNISolone Sod Succ 125 MG Vial IV SCH (16:00)
[2024-09-10 16:03] VITALS: BP 131/53
--- NOTE | 2024-09-10 16:22 | NUR ---
ADMISSION: PT LETHARGIC ON ARRIVAL. ABLE TO TELL THIS RN NAME . UNAWARE OF LOCATION, DATE, CURRENT PRESIDENT. STRENGTH WEAK, EQUAL BILATERALLY. BP STABLE. HR SR 70'S, AFEBRILE, SPO2 >93% ON 3L NC. LUNG SOUNDS COARSE IN UPPER, DIM IN BASES. ABD SOFT, NON TENDER, BOWEL SOUNDS +. PULSES STRONG AND EQUAL THROUGHOUT. PUREWICK IN PLACE FOR INCONTINENCE. PT UNABLE TO TELL THIS RN PRIOR MEDICAL HISTORY/CURRENT MEDICATIONS. PT ORIENTED TO ROOM AND CALL LIGHT SYSTEM, BED IN LOW, CALL LIGHT IN REACH, ALARM ON FOR SAFETY.
--- NOTE | 2024-09-10 18:24 | NUR ---
Spiritual Care Visit Attempted (Pt. referral deferred) Pt. is not appropriately dressed and does not display evidence of a frame of mind for a meaningful spiritual care visit. Prayers were made for the Pt., but not in the Pts. presence. Confirmed attempt with atteding nurse.
[2024-09-10] MEDS ORDERED: Acetaminophen 325 MG TABLET PO PRN (18:40)
[2024-09-10] MEDS ORDERED: HyDROXyzine HCl 25 MG Tab PO PRN (18:40)
[2024-09-10 19:47] VITALS: BP 144/47
[2024-09-10] MEDS ORDERED: ClonazePAM 1 MG Tab PO SCH (21:00)
[2024-09-10] MEDS ORDERED: Atorvastatin 10 MG Tab PO SCH (21:00)
[2024-09-10] MEDS ORDERED: Sertraline HCl 100 MG Tab PO SCH (21:00)
[2024-09-10 23:36] VITALS: BP 108/60
--- NOTE | 2024-09-11 00:56 | NUR ---
UPDATE: PT INCREASINGLY CONFUSED AND AGITATED. ONLY ABLE TO WEAR BIPAP FOR BRIEF PERIODS OF TIME DUE TO PT PULLING IT OFF. PT INTERMITTENTLY TEARFUL, MANY ATTEMPTS TO GET OUT OF BED EVEN THOUGH SHE IS TOO WEAK TO BE SUCCESSFUL. BED ALARM AND BED RAILS FOR SAFETY. PRN ANXIETY MEDS GIVEN. PT TAKING OFF HER O2 WITH DESATURATION TO 80'S. MED HAS BEEN CALLED.
[2024-09-11] MEDS ORDERED: LORazepam 2 MG/ML 1ML Injection IV ONE (01:10)
[2024-09-11] MEDS ORDERED: HyDROXyzine HCl 25 MG Tab PO PRN (01:15)
[2024-09-11] MEDS ORDERED: LORazepam 2 MG/ML 1ML Injection IV PRN (01:15)
[2024-09-11] MEDS ORDERED: Haloperidol Lactate Inj. 5 MG/ML Injection IV ONE (02:15)
[2024-09-11 03:40] VITALS: BP 101/81
[2024-09-11 05:00] LABS: Hematocrit 26.6 % (33.0-51.0); Hemoglobin 8.4 g/dL (11.5-16.0); Mean Corpuscular HGB 26.4 pg (26.0-34.0); Mean Corpuscular HGB Conc 31.6 g/dL (31.5-36.5); Mean Corpuscular Volume 84 fL (80-100); Mean Platelet Volume 12.2 fL (9.1-12.4); Platelet Count 232 K/mm3 (150-400); RDW Coefficient Variation 14.3 % (11.7-14.2); RDW Standard Deviation 44.1 fL (35.1-46.3); Red Blood Cell Count 3.18 M/mm3 (3.80-5.20); White Blood Cell Count 3.97 K/mm3 (4.00-11.30)
[2024-09-11 05:48] LABS: Bun/Creatinine Ratio 35.7 (12.0-20.0); Calcium, Blood 8.6 mg/dL (8.5-10.1); Creatinine, Blood 1.68 mg/dL (0.40-1.00); Potassium, Blood 4.9 mmol/L (3.5-5.5)
[2024-09-11] MEDS ORDERED: Insulin Human Lispro 100 Units/ML 3ML Syringe SC SCH (07:30)
[2024-09-11 07:36] VITALS: BP 129/82
[2024-09-11] MEDS ORDERED: ClonazePAM 1 MG Tab PO SCH (09:00)
[2024-09-11] MEDS ORDERED: Furosemide 40 MG Tab PO SCH (09:00)
[2024-09-11] MEDS ORDERED: Enoxaparin 30 MG/0.3 ML SYR SC SCH (09:00)
[2024-09-11] MEDS ORDERED: Lisinopril 5 MG Tab PO SCH (09:00)
[2024-09-11] MEDS ORDERED: Gabapentin 100 MG Cap PO SCH (09:00)
[2024-09-11] MEDS ORDERED: Insulin Glargine-Yfgn 100 Unit/mL 3 ML SYR SC SCH (09:00)
[2024-09-11 11:13] LABS: PCO2 Venous 45.3 mmHg (38-42); pH Blood Venous 7.35 (7.34-7.37)
[2024-09-11 11:47] VITALS: BP 132/64
[2024-09-11] MEDS ORDERED: Haloperidol Lactate Inj. 5 MG/ML Injection IV PRN (15:40)
[2024-09-11] MEDS ORDERED: D5W-1/2NS 1,000 ML IV SCH (17:10)
[2024-09-11] MEDS ORDERED: Dextrose 50% 50 ML Syringe ONE (17:49)
[2024-09-11] MEDS ORDERED: Dextrose 50% 50 ML Syringe IV ONE (18:05)
--- NOTE | 2024-09-11 18:37 | NUR ---
End of Shift Pt confused. Oriented to self only. Pt reporting date "June 2023" & states "I don't know" when asked where she is. This morning, pt repeatedly telling staff "I'm not ! Why won't anyone believe me?! I'm not !" Pt then mumbling "I can't have my sister's baby.." Pt tearful & reiterating to staff "I'm not " despite staff agreeance w/ pt that pt is not . Pt VSS. Pt wearing bipap this AM until she woke & continually attempted to remove bipap. Bipap removed & repeat VBG done. Pt spo2 > 92% on 1L NC. Monitor showing NSR. Pt w/ difficulty voiding on bedpan. Pt w/ one 400 ml void & one 450 ml straight cath. Pt aggitated this afternoon, yelling out "Help me!" Pt not able to communicate needs. Sitter at bedside trying to comfort pt. Pt becoming increasingly aggitated, flailing arms & legs. Staff attempting to safely keep pt in bed. PRN IV ativan given w/ no improvement. PO zyprexa attempted w/ pt spitting med out. MD Slade w/ order for IV haldol. IV haldol & reattempt & dissolvable PO zyprexa successful. Pt remained aggitated for extended period of time. Pt eventually calm & no longer yelling out & fighting & flailing. Pt CBG 300s this AM. Pt given insulin per EMAR. Pt then attempting to drink water this AM but coughing on sip of water through straw. Attempt to trial water via spoon but pt refusing any further PO intake. CBG this afternoon 61 w/ pt alert, aggitated & noncompliant. w/ order for D5 1/2 NS @ 75. Fluid started & CBG rechecked: 54. w/ order for one time D50 50ml push & increase D5 1/2 NS gtt to 100 mls/hr, see orders. Repeat CB.
[2024-09-11 19:20] VITALS: BP 143/108
[2024-09-11] MEDS ORDERED: Arginine/Glutamine/Calcium Hmb 1 Packet PO SCH (21:00)
[2024-09-11 23:41] VITALS: BP 125/59
[2024-09-12 02:55] VITALS: BP 123/68
[2024-09-12 05:01] LABS: Bun/Creatinine Ratio 42.6 (12.0-20.0); Calcium, Blood 8.9 mg/dL (8.5-10.1); Creatinine, Blood 1.22 mg/dL (0.40-1.00); Potassium, Blood 4.4 mmol/L (3.5-5.5)
[2024-09-12 08:46] VITALS: BP 140/51
[2024-09-12] MEDS ORDERED: Enoxaparin 40 MG/0.4 ML SYR SC SCH (09:00)
[2024-09-12] MEDS ORDERED: Calcitriol 0.25 MCG Cap PO SCH (09:00)
[2024-09-12] MEDS ORDERED: MethylPREDNISolone Sod Succ 125 MG Vial IV SCH (09:00)
[2024-09-12] MEDS ORDERED: Insulin Glargine-Yfgn 100 Unit/mL 3 ML SYR SC SCH (09:00)
--- NOTE | 2024-09-12 10:00 | NUR ---
AM NOTE PT SOMNOLENT BUT WAKES TO VERBAL STIMULI. SHE IS OFTEN MOANING AND IS ORIENTED TO SELF ONLY. THIS AM SHE STATED TO SITTER SANJUANA HEMPHILL "I'M 28 AND NOT ." THIS RN PERFORMED A BEDSIDE SWALLOW EVALUATION TO WHICH THE PT FAILED. DR. MORGAN MADE AWARE AND SPEECH THERAPY CONSULT PLACED. 1:1 SITTER IS AT BEDSIDE, VSS. CALL LIGHT IS W/IN REACH.
[2024-09-12] MEDS ORDERED: Nicotine 14 MG PATCH TOP SCH (15:20)
[2024-09-12 15:22] VITALS: BP 134/60
--- NOTE | 2024-09-12 16:30 | NUR ---
SHIFT SUMMARY PT IS SOMNOLENT BUT WAKES TO VERBAL STIMULI. SHE IS ORIENTED TO SELF ONLY AND APPEARS MUCH CONFUSED AND AGITATED AT TIMES BUT HAS BEEN REDIRECTABLE. SHE HAS USED BEDSIDE COMMODE DURING SHIFT A STRONG 2 PERSON ASSIST W/ GAIT BELT BUT HAS OTHERWISE BEEN IN BED, SHE APPEARS WEAK/DECONDITIONED WHEN AMBULATING TO COMMODE. BP AND HR HAVE BEEN STABLE, SPO2 MAINTAINED >95% VIA 2L NC. SHE HAS DENIED FEELINGS OF CHEST PAIN/PRESSURE OR LIGHTHEADEDNESS/DIZZINESS. THIS AM SHE FAILED BEDSIDE SWALLOW EVALUATION AND HAS THEREFORE BEEN NPO UNTIL SPEECH THERAPY CAN FURTHER EVALUATE, GREEN SWABS AND ORAL CARE PROVIDED BY STAFF REQUESTED/NEEDED. PT HAS REPORTED HUNGER PAINS IN ABD AND WAS EDUCATED BY THIS RN REGARDING ABILITY TO SAFELY SWALLOW AND NPO STATUS, WILL CONTINUE TO COMMUNICATE THERAPEUTICALLY. THERE HAS BEEN A 1:1 SITTER T/O SHIFT. THIS RN CALLED LISTED CAREGIVER JANEY REGARDING SMOKING STATUS OF PT AND CAREGIVER REPORTED THAT PT DOES SMOKE [address] C[address] DAILY, DR. MORGAN MADE AWARE AND NICOTINE PATCH IS NOW IN PLACE PER EMAR ORDERS. BED ALARM IS ON. CALL LIGHT IS W/IN REACH.
[2024-09-12] MEDS ORDERED: Ipratropium/Albuterol SulF 2.5-0.5MG/3 ML Amp INH PRN (18:40)
[2024-09-12 19:47] VITALS: BP 104/92
[2024-09-13 04:02] VITALS: BP 158/71
--- NOTE | 2024-09-13 05:44 | NUR ---
pt restless throughout shift, prn haldol and ativan given iv. pt upset over npo status. mouth care and moisturizer given. pt oriented to name and place. sitter remains at bedside.
[2024-09-13 06:25] LABS: Bun/Creatinine Ratio 36.7 (12.0-20.0); Calcium, Blood 8.5 mg/dL (8.5-10.1); Creatinine, Blood 1.09 mg/dL (0.40-1.00); Potassium, Blood 4.2 mmol/L (3.5-5.5)
[2024-09-13 08:32] VITALS: BP 160/70
[2024-09-13 12:21] VITALS: BP 161/76
[2024-09-13] MEDS ORDERED: HydrALAZINE HCl 20 MG / ML 1ML Vial IV PRN (16:45)
[2024-09-13 17:00] VITALS: BP 171/83
--- NOTE | 2024-09-13 18:59 | NUR ---
SHIFT SUMMARY PATIENT AOX3 DENIES PAIN DENIES SOB. SITTER AT BEDSIDE. SHE IS ABLE TO MAKE HER NEEDS MET. SHE PASSED HER SPEECH EVAL TODAY AND WAS ABLE TO EAT. SHE WAS VERY PLEASANT WITH THE SITTER TODAY AND ENJOYED SITTING IN THE CHAIR AT BEDSIDE FOR MAJORITY OF THE DAY. HER BLOOD PRESSURE WAS ELEVATED TODAY SO SHE RECIEVED A DOSE OF PRN HYDRALAZINE. SHE HAS ORDERS FOR PT EVAL.
[2024-09-13 20:00] VITALS: BP 128/75
[2024-09-14 04:27] VITALS: BP 142/63
--- NOTE | 2024-09-14 05:28 | NUR ---
PT RESTED AT INTERVALS THIS SHIFT. UP TO BEDSIDE COMMODE WITH ASSISTANCE, SITTER REMAINS AT BEDSIDE DUE TO PTS IMPULSIVENESS. PT WITH 1 EPISODE OF DISORIENTATION, STATED SHE FORGOT WHERE SHE WAS, EASILY REORIENTED. MEPELEX TO RIGHT BUTTOCK CHANGED. PT DENIES PAIN, BED ALARM IN USE, WILL CONTINUE TO MONITOR
[2024-09-14 07:54] VITALS: BP 162/64
[2024-09-14] MEDS ORDERED: PredniSONE 20 MG Tab PO SCH (09:00)
[2024-09-14] MEDS ORDERED: PRED20 PO (11:56)
[2024-09-14] MEDS ORDERED: DOXY100 PO (11:56)
--- NOTE | 2024-09-14 15:41 | NUR ---
Discharge Home Pt medical no telemetry status. A&O to self & place. Disoriented to day/month/year. Pt VSS. Spo2 > 92% on RA/1-2L NC as needed w/ report of wearing 4L NC at home. w/ order for discharge back to home w/ home health. Discharge instructions reviewed w/ pt & sent home w/ pt. Pt taken out in wheelchair w/ oxygen & pt caregiver @ approx 1530.
== END 2024-09-14 15:30 | disposition home health service (06) | DRG 189 ==
LOC: ER 08:54 → PCU 11:44 → ERHOLD 11:44 → PCU 15:31
PROVIDERS: Student in an Organized Health Care Education/Training Program; ADMIT Internal Medicine
PROC: 5A09357 Assistance with Respiratory Ventilation, Less than 24 Consecutive Hours, Continuous Positive Airway Pressure (ICD-10-PCS; principal; 2024-09-10)
DX: J96.21 Acute and chronic respiratory failure with hypoxia (principal); G92.8 Other toxic encephalopathy; N17.9 Acute kidney failure, unspecified; J44.1 Chronic obstructive pulmonary disease with (acute) exacerbation; I50.32 Chronic diastolic (congestive) heart failure; E87.29 Other acidosis; J96.22 Acute and chronic respiratory failure with hypercapnia; E11.649 Type 2 diabetes mellitus with hypoglycemia without coma; G30.9 Alzheimer's disease, unspecified; F02.80 Dementia in other diseases classified elsewhere, unspecified severity, without behavioral disturbance, psychotic disturbance, mood disturbance, and anxiety; E11.22 Type 2 diabetes mellitus with diabetic chronic kidney disease; I25.10 Atherosclerotic heart disease of native coronary artery without angina pectoris; N18.30 Chronic kidney disease, stage 3 unspecified; E83.42 Hypomagnesemia; E78.5 Hyperlipidemia, unspecified; D63.1 Anemia in chronic kidney disease; E11.42 Type 2 diabetes mellitus with diabetic polyneuropathy; M19.90 Unspecified osteoarthritis, unspecified site; Z95.5 Presence of coronary angioplasty implant and graft; Z90.49 Acquired absence of other specified parts of digestive tract; Z90.12 Acquired absence of left breast and nipple; F17.210 Nicotine dependence, cigarettes, uncomplicated; Z88.2 Allergy status to sulfonamides; Z79.84 Long term (current) use of oral hypoglycemic drugs; Z79.4 Long term (current) use of insulin; Z79.899 Other long term (current) drug therapy
CPT/HCPCS: 0241U; 36415; 51701; 71045; 80047; 80048; 80076; 81001; 82140; 82550; 82803; 82947; 83605; 83735; 83880; 84145; 85014; 85025; 85027; 92610; 93005; 93010; 94640; 94644; 94660; 94664; 94762; 96361; 96365; 96375; 97110; 97116; 97162; 99285-25; A9270; J0360; J0456; J0696; J1630; J1650; J1815; J2060; J2919; J7030; J7042; J7050; J7512; J7799; P9612